=== PATIENT | female | born 1935 | race Caucasian/White ===

== ENCOUNTER 2016-06-17 01:36 | Emergency (ER) | payer MEDICARE, BC ==
[2016-06-17] MEDS ORDERED: Meclizine 25 MG Tab PO ONE (02:54)
--- NOTE | 2016-06-17 02:54 | EDM.PDOC ---
ED HPI GENERAL MEDICAL PROBLEM - General Chief Complaint: General Stated Complaint: FEELING ILL Time Seen by Provider: 06/17/16 02:19 Source of Information: Reports: Patient, Family, RN notes reviewed History Limitations: Reports: No limitations - History of Present Illness INITIAL COMMENTS - FREE TEXT/NARRATIVE: 80-year-old female presents emergency department today with complaint of dizziness, she has been dizzy for the last 4 hours did take some meclizine which provided some relief. She describes her dizziness as constant there's no hearing difficulty she did have an episode of chills prior to the onset of dizziness. Described no other symptoms. She did take one tablet of meclizine which she feels provided her some relief Neck Pain Score (Numeric/FACES): 4 - Related Data Allergies Allergy/AdvReac Type Severity Reaction Status Date / Time Sulfa (Sulfonamide Allergy Rash Verified 06/17/16 01:45 Antibiotics) Home Meds: Home Meds Aspirin [Adult Low Dose Aspirin EC] 81 mg PO DAILY 06/17/16 [History] Cholecalciferol (Vitamin D3) [Vitamin D3] 1,000 units PO DAILY 06/17/16 [History ] Cyanocobalamin (Vitamin B12) [Vitamin B12] 1,000 mcg IJ ASDIRECTED 06/17/16 [ History] Iron-Vitamin C 65 - 125 mg PO DAILY 06/17/16 [History] Latanoprost [Latanoprost] 1 drop TOP BEDTIME 06/17/16 [History] Levothyroxine [Sythroid] 100 mcg PO DAILY 06/17/16 [History] Losartan Potassium [Cozaar] 100 mg PO DAILY 06/17/16 [History] Meclizine [Antivert] 25 mg PO Q6H PRN 06/17/16 [History] Sertraline [Zoloft] 100 mg PO DAILY 06/17/16 [History] amLODIPine [Norvasc] 10 mg PO DAILY 06/17/16 [History] Past Medical History HEENT History: Reports: Glaucoma, Impaired vision Cardiovascular History: Reports: Hypertension, Other (see below) Other Cardiovascular History: carotid artery blockage Genitourinary History: Reports: UTI, recurrent 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: , 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 Musculoskeletal History: Reports: Fracture Other Musculoskeletal History: upper arm Neurological History: Reports: Vertigo Psychiatric History: Reports: Anxiety Endocrine/Metabolic History: Reports: Hypothyroidism, Other (see below) Other Endocrine/Metabolic History: hypoglycemic Hematologic History: Reports: Iron deficiency - Infectious Disease History Infectious Disease History: Reports: Chicken pox, Measles, Shingles - Past Surgical History HEENT Surgical History: Reports: Cataract surgery GI Surgical History: Reports: Bariatric procedure, Cholecystectomy, Colonoscopy Female Surgical History: Reports: Hysterectomy Social & Family History - Tobacco Use Smoking Status *Q: Never Smoker Second Hand Smoke Exposure: No - Caffeine Use Caffeine Use: Reports: Coffee, Soda - Recreational Drug Use Recreational Drug Use: No ED ROS GENERAL - Review of Systems Review Of Systems: See Below Constitutional: Reports: chills HEENT: Reports: No symptoms Respiratory: Reports: No Symptoms Cardiovascular: Reports: No symptoms GI/Abdominal: Reports: No symptoms : Reports: no symptoms Musculoskeletal: Reports: no symptoms Skin: Reports: no symptoms Neurological: Reports: Dizziness Psychiatric: Reports: Anxiety ED EXAM, GENERAL - Physical Exam Exam: See Below Free Text/Narrative:: General: Female, not in any distress, alert and oriented x3 HEENT: head is atraumatic normocephalic, eyes pupils round reactive to light right bigger than left (not new), sclera clear no conjunctivitis appreciated. Ears blocked by cerumen bilaterally. Nose no septal deviation, nares are clear, no blood present. Mouth mucosa is moist and pink no erythema or exudate noted in soft palate, tongue is midline uvula is midline, dentures in place. Neck: Supple no thyromegaly no tracheal deviation. Nodes: Cervical nodes subclavicular nodes nontender no palpable lymphadenopathy noted. Lungs: clear to auscultation bilaterally with symmetrical respirations, no adventitious noise appreciated. CV: Regular rate and rhythm S1 and S2 appreciated 2/6 systolic ejection murmur best appreciated left sternal border. Abdomen: Soft, nontender, no palpable masses or organomegaly appreciated, no distention no guarding bowel sounds are present, . Neuro: Cranial nerves II through XII grossly intact, HINTS exam produces no nystagmus or ocular abnormality Skin: Warm and dry, intact Extremities: No lower extremity edema appreciated, pedal pulse is +2. Course - Vital Signs Last Recorded V/S: Last Vital Signs Temp 96.8 F 06/17/16 03:55 Pulse 73 06/17/16 03:55 Resp 16 06/17/16 03:55 BP 128/67 06/17/16 03:55 Pulse Ox 95 06/17/16 03:55 - Orders/Labs/Meds Orders: Active Orders 24 hr Category Date Time Status EKG Documentation Completion [RC] ASDIRECTED Care 06/17/16 02:46 Active Head wo Cont [CT] Urgent Exams 06/17/16 02:45 Taken EKG 12 Lead [EK] Urgent Ther 06/17/16 02:45 Ordered Labs: Laboratory Tests 06/17/16 06/17/16 06/17/16 Range/Units 02:10 02:55 02:55 WBC 12.6 H (4.5-11.0) K/uL RBC 4.65 (3.30-5.50) M/uL Hgb 13.4 (12.0-15.0) g/dL Hct 38.9 (36.0-48.0) % MCV 84 (80-98) fL MCH 29 (27-31) pg MCHC 34 (32-36) % Plt Count 308 (150-400) K/uL Neut % (Auto) 75 H (36-66) % Lymph % (Auto) 14 L (24-44) % [place] % (Auto) 10 H (2-6) % Eos % (Auto) 1 L (2-4) % Baso % (Auto) 0 (0-1) % D-Dimer, Quantitative (0.0-400.0) ng/mL Sodium 126 L (140-148) mmol/L Potassium 3.5 L (3.6-5.2) mmol/L Chloride 92 L (100-108) mmol/L Carbon Dioxide 24 (21-32) mmol/L Anion Gap 13.5 (5.0-14.0) mmol/L BUN 20 H (7-18) mg/dL Creatinine 0.7 (0.6-1.0) mg/dL Est Cr Clr Drug Dosing 49.53 mL/min Estimated GFR (MDRD) > 60 (>60) Glucose 103 (74-106) mg/dL Calcium 8.2 L (8.5-10.1) mg/dL Total Bilirubin 0.4 (0.2-1.0) mg/dL AST 36 (15-37) U/L ALT 33 (12-78) U/L Alkaline Phosphatase 98 (46-116) U/L Troponin I < 0.017 (0.000-0.056) ng/mL Total Protein 7.7 (6.4-8.2) g/dL Albumin 3.5 (3.4-5.0) g/dL Globulin 4.2 H (2.3-3.5) g/dL Albumin/Globulin Ratio 0.8 L (1.2-2.2) Urine Color Yellow Urine Appearance Clear Urine pH 7.0 (4.5-8.0) Ur Specific [place] 1.010 (1.008-1.030) Urine Protein Negative (NEGATIVE) mg/dL Urine Glucose (UA) Normal (NEGATIVE) mg/dL Urine Ketones Negative (NEGATIVE) mg/dL Urine Occult Blood Negative (NEGATIVE) Urine Nitrite Negative (NEGATIVE) Urine Bilirubin Negative (NEGATIVE) Urine Urobilinogen Normal (NORMAL) mg/dL Ur Leukocyte Esterase Negative (NEGATIVE) Urine RBC 0-5 (0-5) Urine WBC 0-5 (0-5) Ur Epithelial Cells Rare Amorphous Sediment Not seen Urine Bacteria Rare Urine Mucus Not seen 06/17/16 Range/Units 02:55 WBC (4.5-11.0) K/uL RBC (3.30-5.50) M/uL Hgb (12.0-15.0) g/dL Hct (36.0-48.0) % MCV (80-98) fL MCH (27-31) pg MCHC (32-36) % Plt Count (150-400) K/uL Neut % (Auto) (36-66) % Lymph % (Auto) (24-44) % [place] % (Auto) (2-6) % Eos % (Auto) (2-4) % Baso % (Auto) (0-1) % D-Dimer, Quantitative 443 H (0.0-400.0) ng/mL Sodium (140-148) mmol/L Potassium (3.6-5.2) mmol/L Chloride (100-108) mmol/L Carbon Dioxide (21-32) mmol/L Anion Gap (5.0-14.0) mmol/L BUN (7-18) mg/dL Creatinine (0.6-1.0) mg/dL Est Cr Clr Drug Dosing mL/min Estimated GFR (MDRD) (>60) Glucose (74-106) mg/dL Calcium (8.5-10.1) mg/dL Total Bilirubin (0.2-1.0) mg/dL AST (15-37) U/L ALT (12-78) U/L Alkaline Phosphatase (46-116) U/L Troponin I (0.000-0.056) ng/mL Total Protein (6.4-8.2) g/dL Albumin (3.4-5.0) g/dL Globulin (2.3-3.5) g/dL Albumin/Globulin Ratio (1.2-2.2) Urine Color Urine Appearance Urine pH (4.5-8.0) Ur Specific [place] (1.008-1.030) Urine Protein (NEGATIVE) mg/dL Urine Glucose (UA) (NEGATIVE) mg/dL Urine Ketones (NEGATIVE) mg/dL Urine Occult Blood (NEGATIVE) Urine Nitrite (NEGATIVE) Urine Bilirubin (NEGATIVE) Urine Urobilinogen (NORMAL) mg/dL Ur Leukocyte Esterase (NEGATIVE) Urine RBC (0-5) Urine WBC (0-5) Ur Epithelial Cells Amorphous Sediment Urine Bacteria Urine Mucus Meds: Medications Discontinued Medications Generic Name Dose Route Start Last Admin Trade Name Freq PRN Reason Stop Dose Admin Meclizine HCl 25 mg 06/17/16 02:54 06/17/16 03:02 Antivert PO 06/17/16 02:55 25 mg ONETIME ONE Administration Departure - Departure Time of Disposition: 04:06 Disposition: Home, Self-Care 01 Condition: good Clinical Impression: Vertigo Forms: ED Department Discharge Additional Instructions: Use meclizine as needed to help dizziness symptoms, Please followup with your primary care provider in 3-5 days if not better, please call return to the emergency department with worsening of symptoms. - My Orders Last 24 Hours: My Active Orders 06/17/16 02:45 Head wo Cont [CT] Urgent EKG 12 Lead [EK] Urgent 06/17/16 02:46 EKG Documentation Completion [RC] ASDIRECTED - Assessment/Plan Last 24 Hours: My Active Orders 06/17/16 02:45 Head wo Cont [CT] Urgent EKG 12 Lead [EK] Urgent 06/17/16 02:46 EKG Documentation Completion [RC] ASDIRECTED Plan: Assessment Acuity = acute on chronic Site and laterality = vertigo complicating the patient with known history of vertigo, hypertension Etiology = unclear etiology Manifestations = none Location of injury = home Lab values = WBC mildly elevated at 12.6 consistent leukocytosis d-dimer elevated at 443 normal is 400 of unclear significance sodium low at 126 consistent hyponatremia potassium low at 2.5 consistent hypokalemia urinalysis unremarkable, EKG demonstrates a sinus rhythm CT scan shows no acute intracranial process Plan She did have improvement with meclizine provided prescription written for meclizine follow up with primary care the next 3-5 days for reevaluation of hyponatremia Patient was in agreement with the plan all questions were answered, they were instructed to return to the emergency department or call for worsening symptoms. This note was dictated using [employer] voice recognition software please call with any questions.
[2016-06-17 03:56] VITALS: BP 128/67
== END 2016-06-17 04:30 | disposition home or self-care (01) ==
LOC: JP.ED 01:36
DX: R42 Dizziness and giddiness (principal); Z88.2 Allergy status to sulfonamides; Z79.82 Long term (current) use of aspirin; Z79.899 Other long term (current) drug therapy; I10 Essential (primary) hypertension; F41.9 Anxiety disorder, unspecified; E03.9 Hypothyroidism, unspecified
CPT/HCPCS: 36415; 70450; 80053; 81001; 84484; 85025; 85379; 93005; A9270; 93010; 99283; 99284-25

== ENCOUNTER 2016-07-18 14:56 | Emergency (ER) | payer MEDICARE, BC ==
[2016-07-18 15:35] VITALS: BP 128/59
--- NOTE | 2016-07-18 17:08 | EDM.PDOC ---
ED HPI GENERAL MEDICAL PROBLEM - General Chief Complaint: Genitourinary Problem Stated Complaint: UTI Time Seen by Provider: 07/18/16 17:00 Source of Information: Reports: Patient History Limitations: Reports: No Limitations - History of Present Illness INITIAL COMMENTS - FREE TEXT/NARRATIVE: Debra is a delightful 80 year old female who presents to the ED today with c/ o dysuria, urgency/frequency and fatigue since yesterday. Patient denies any back pain, fever/chills, nausea/vomiting. Patient was seen last week and diagnosed with a UTI. Patient was started on Macrobid last Thursday, July 11, 2016. She reports she felt better earlier this week then symptoms started again yesterday. Patient denies any gross hematuria. Onset Date: 07/17/16 Quality: Reports: Burning Improves with: Reports: None Associated Symptoms: Reports: Other (fatigue) - Related Data Allergies Allergy/AdvReac Type Severity Reaction Status Date / Time Sulfa (Sulfonamide Allergy Rash Verified 07/18/16 15:45 Antibiotics) Home Meds: Home Meds Aspirin [Adult Low Dose Aspirin EC] 81 mg PO DAILY 06/17/16 [History] Cholecalciferol (Vitamin D3) [Vitamin D3] 1,000 units PO DAILY 06/17/16 [History ] Cyanocobalamin (Vitamin B12) [Vitamin B12] 1,000 mcg IJ ASDIRECTED 06/17/16 [ History] Iron-Vitamin C 65 - 125 mg PO DAILY 06/17/16 [History] Latanoprost [Latanoprost] 1 drop TOP BEDTIME 06/17/16 [History] Levothyroxine [Sythroid] 100 mcg PO DAILY 06/17/16 [History] Losartan Potassium [Cozaar] 100 mg PO DAILY 06/17/16 [History] Meclizine [Antivert] 25 mg PO Q6H PRN 06/17/16 [History] Sertraline [Zoloft] 100 mg PO DAILY 06/17/16 [History] amLODIPine [Norvasc] 10 mg PO DAILY 06/17/16 [History] Doxycycline Hyclate 50 mg PO DAILY 07/18/16 [History] Past Medical History HEENT History: Reports: Glaucoma, Impaired Vision Cardiovascular History: Reports: Hypertension, Other (See Below) Other Cardiovascular History: carotid artery blockage Gastrointestinal History: Reports: Cholelithiasis Genitourinary History: Reports: UTI, Recurrent 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: , 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 Musculoskeletal History: Reports: Fracture Other Musculoskeletal History: upper arm Neurological History: Reports: Vertigo Psychiatric History: Reports: Anxiety Endocrine/Metabolic History: Reports: Hypothyroidism, Other (See Below) Other Endocrine/Metabolic History: hypoglycemic Hematologic History: Reports: Iron Deficiency - Infectious Disease History Infectious Disease History: Reports: Chicken Pox, Measles, Shingles - Past Surgical History HEENT Surgical History: Reports: Cataract Surgery GI Surgical History: Reports: Bariatric Procedure, Cholecystectomy, Colonoscopy Female Surgical History: Reports: Hysterectomy Social & Family History - Tobacco Use Smoking Status *Q: Never Smoker Second Hand Smoke Exposure: No - Caffeine Use Caffeine Use: Reports: Coffee, Soda - Recreational Drug Use Recreational Drug Use: No ED ROS GENERAL - Review of Systems Review Of Systems: ROS reveals no pertinent complaints other than HPI. ED EXAM, RENAL/ - Physical Exam Exam: See Below Exam Limited By: No Limitations General Appearance: Alert, WD/WN, No Apparent Distress Respiratory/Chest: No Respiratory Distress, Lungs Clear Cardiovascular: Normal Peripheral Pulses, Regular Rate, Rhythm GI/Abdominal: Normal Bowel Sounds, Soft, Non-Tender (Female) Exam: Other (No CVA tenderness on exam. ) Neurological: Alert, Oriented (Well hydrated, non-toxic appearing female sitting in chair in no acute distress) Psychiatric: Normal Affect Skin Exam: Warm, Dry Course - Vital Signs Text/Narrative:: Debra is an 80 year old female who presents to the ED today with concerns for return of UTI. Please refer to HPI and focused exam. Patient arrives her afebrile and in no acute distress. Her exam is reassuring today. UA is consistent with UTI. UC is pending. UC from urine on 07/11/16 shows sensitivity to essentially everything except for tetracycline. Patient was treated with Macrobid last week. Patient may benefit from an antibiotic that is bacetericidal. Patient has sulfa allergy. I am going to start her on Cipro, BID for 5 days. Patient's last GFR was > 60 with an estimated CC of 49.53 on 01/2017, I will start patient on 500 mg BID. I did encourage patient to start a probiotic while she is on the antibiotics. I would like her seen in clinic later this next week. Reasons to return to the ED were discussed. Patient is agreeable to plan of care and questions were answered prior to discharge. Patient discharged in stable condition. Last Recorded V/S: Last Vital Signs Temp 37.0 C 07/18/16 15:43 Pulse 78 07/18/16 15:43 Resp 18 07/18/16 15:43 BP 128/59 L 07/18/16 15:43 Pulse Ox 95 07/18/16 15:43 - Orders/Labs/Meds Orders: Active Orders 24 hr Category Date Time Status CULTURE URINE [RM] Stat Lab 07/18/16 16:30 Received Labs: Laboratory Tests 07/18/16 Range/Units 16:05 Urine Color Yellow Urine Appearance Cloudy Urine pH 6.0 (4.5-8.0) Ur Specific [place] 1.010 (1.008-1.030) Urine Protein Negative (NEGATIVE) mg/dL Urine Glucose (UA) Normal (NEGATIVE) mg/dL Urine Ketones Negative (NEGATIVE) mg/dL Urine Occult Blood Large (NEGATIVE) Urine Nitrite Positive H (NEGATIVE) Urine Bilirubin Negative (NEGATIVE) Urine Urobilinogen Normal (NORMAL) mg/dL Ur Leukocyte Esterase Large (NEGATIVE) Urine RBC 50-75 H (0-5) Urine WBC Semi-packed H (0-5) Ur Epithelial Cells Few Amorphous Sediment Not seen Urine Bacteria Many Urine Mucus Not seen Departure - Departure Time of Disposition: 17:30 Disposition: Home, Self-Care 01 Clinical Impression: UTI, Urinary tract infectious disease - Discharge Information Instructions: Urinary Tract Infection, Adult, [id number] Referrals: Nemesio Taveras MD [Primary Care Provider] - Forms: ED Department Discharge Additional Instructions: Debra, please take Cipro as prescribed. I would also like you to start a probiotic while on the antibiotics which will help with Stomach upset and prevent diarrhea. The brand I like to Recommend is Culturelle, you can find this at [email or web address]. Please take twice daily for 7 days. It was delightful to meet you. Take care and I hope you feel better soon. - My Orders Last 24 Hours: My Active Orders 07/18/16 16:30 CULTURE URINE [RM] Stat - Assessment/Plan Last 24 Hours: My Active Orders 07/18/16 16:30 CULTURE URINE [RM] Stat
== END 2016-07-18 17:25 | disposition home or self-care (01) ==
LOC: JP.ED 14:56
DX: N39.0 Urinary tract infection, site not specified (principal); I10 Essential (primary) hypertension; F41.9 Anxiety disorder, unspecified; E03.9 Hypothyroidism, unspecified; Z98.49 Cataract extraction status, unspecified eye; Z98.84 Bariatric surgery status; Z90.49 Acquired absence of other specified parts of digestive tract; Z90.710 Acquired absence of both cervix and uterus; Z79.82 Long term (current) use of aspirin; Z79.899 Other long term (current) drug therapy; Z88.2 Allergy status to sulfonamides
CPT/HCPCS: 81001; 87086; 87088; 87186; 99283; 99284

== ENCOUNTER 2016-10-13 06:00 | Emergency (ER) | payer MEDICARE, BC ==
[2016-10-13 06:07] VITALS: BP 131/69
--- NOTE | 2016-10-13 06:33 | EDM.PDOC ---
ED HPI GENERAL MEDICAL PROBLEM - General Chief Complaint: Cardiovascular Problem Stated Complaint: MED[facility] Time Seen by Provider: 10/13/16 06:24 Source of Information: Reports: Patient, EMS, RN Notes Reviewed History Limitations: Reports: No Limitations - History of Present Illness INITIAL COMMENTS - FREE TEXT/NARRATIVE: 81-year-old female presents emergency department today with complaint of elevated blood pressure, she has a known history of hypertension usually controls with combination losartan and amlodipine she awoke this morning checked her blood pressure systolic in the 200 range diastolic 110 range she felt flushed uncomfortable she did take her morning medications called EMS services, by the time EMS had arrived in the ambulance blood pressure was 124/ 86 feels all of her symptoms have resolved she is asymptomatic at this time - Related Data Allergies Allergy/AdvReac Type Severity Reaction Status Date / Time Sulfa (Sulfonamide Allergy Rash Verified 10/13/16 06:13 Antibiotics) contrast dye Allergy Rash Uncoded 10/13/16 06:13 Home Meds: Home Meds Cholecalciferol (Vitamin D3) [Vitamin D3] 1,000 units PO DAILY 06/17/16 [History ] Cyanocobalamin (Vitamin B12) [Vitamin B12] 1,000 mcg IJ ASDIRECTED 06/17/16 [ History] Iron-Vitamin C 65 - 125 mg PO DAILY 06/17/16 [History] Latanoprost [Latanoprost] 1 drop EYELF BEDTIME 06/17/16 [History] Levothyroxine [Sythroid] 100 mcg PO DAILY 06/17/16 [History] Losartan Potassium [Cozaar] 100 mg PO DAILY 06/17/16 [History] Meclizine [Antivert] 25 mg PO Q6H PRN 06/17/16 [History] Sertraline [Zoloft] 100 mg PO DAILY 06/17/16 [History] amLODIPine [Norvasc] 10 mg PO DAILY 06/17/16 [History] Aspirin [Halfprin] 81 mg PO DAILY 10/13/16 [History] Past Medical History HEENT History: Reports: Cataract, Glaucoma, Impaired Vision Cardiovascular History: Reports: Blood Clots/VTE/DVT, Hypertension, Other (See Below) Other Cardiovascular History: carotid artery blockage Gastrointestinal History: Reports: Cholelithiasis Genitourinary History: Reports: Urinary Incontinence, UTI, 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: , 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 Musculoskeletal History: Reports: Fracture Other Musculoskeletal History: upper arm Neurological History: Reports: Vertigo Psychiatric History: Reports: Anxiety, Depression Endocrine/Metabolic History: Reports: Hypothyroidism, Obesity/BMI 30+, Other ( See Below) Other Endocrine/Metabolic History: hypoglycemic Hematologic History: Reports: Anemia, Iron Deficiency Dermatologic History: Reports: Cellulitis - Infectious Disease History Infectious Disease History: Reports: Chicken Pox, Measles, Shingles - Past Surgical History HEENT Surgical History: Reports: Cataract Surgery GI Surgical History: Reports: Bariatric Procedure, Cholecystectomy, Colonoscopy Female Surgical History: Reports: Hysterectomy Social & Family History - Tobacco Use Smoking Status *Q: Never Smoker Second Hand Smoke Exposure: No - Caffeine Use Caffeine Use: Reports: Coffee, Soda - Recreational Drug Use Recreational Drug Use: No ED ROS GENERAL - Review of Systems Review Of Systems: See Below Constitutional: Reports: No Symptoms Respiratory: Reports: No Symptoms Cardiovascular: Reports: No Symptoms GI/Abdominal: Reports: No Symptoms : Reports: No Symptoms ED EXAM, GENERAL - Physical Exam Exam: See Below Exam Limited By: No Limitations General Appearance: Alert, WD/WN, No Apparent Distress Respiratory/Chest: No Respiratory Distress, Lungs Clear, Normal Breath Sounds, No Accessory Muscle Use Cardiovascular: Regular Rate, Rhythm, No Murmur GI/Abdominal: Soft, Non-Tender Course - Vital Signs Last Recorded V/S: Last Vital Signs Temp 96.3 F 10/13/16 06:02 Pulse 72 10/13/16 06:02 Resp 16 10/13/16 06:02 BP 131/69 10/13/16 06:02 Pulse Ox 93 L 10/13/16 06:02 - Orders/Labs/Meds Orders: Active Orders 24 hr Category Date Time Status EKG Documentation Completion [RC] ASDIRECTED Care 10/13/16 06:31 Active EKG 12 Lead [EK] Stat Ther 10/13/16 06:31 Ordered Labs: Laboratory Tests 10/13/16 10/13/16 Range/Units 06:35 06:35 WBC 11.2 H (4.5-11.0) K/uL RBC 4.71 (3.30-5.50) M/uL Hgb 13.8 (12.0-15.0) g/dL Hct 40.7 (36.0-48.0) % MCV 86 (80-98) fL MCH 29 (27-31) pg MCHC 34 (32-36) % Plt Count 358 (150-400) K/uL Neut % (Auto) 61 (36-66) % Lymph % (Auto) 23 L (24-44) % [place] % (Auto) 13 H (2-6) % Eos % (Auto) 3 (2-4) % Baso % (Auto) 1 (0-1) % Sodium 136 L (140-148) mmol/L Potassium 3.8 (3.6-5.2) mmol/L Chloride 99 L (100-108) mmol/L Carbon Dioxide 28 (21-32) mmol/L Anion Gap 12.8 (5.0-14.0) mmol/L BUN 15 (7-18) mg/dL Creatinine 0.8 (0.6-1.0) mg/dL Est Cr Clr Drug Dosing 43.62 mL/min Estimated GFR (MDRD) > 60 (>60) Glucose 99 (74-106) mg/dL Calcium 8.7 (8.5-10.1) mg/dL Departure - Departure Time of Disposition: 07:05 Disposition: Home, Self-Care 01 Condition: Good Clinical Impression: Hypertensive urgency Forms: ED Department Discharge Additional Instructions: Please followup with your primary care provider in 3-5 days if not better, please call return to the emergency department with worsening of symptoms. - My Orders Last 24 Hours: My Active Orders 10/13/16 06:31 EKG Documentation Completion [RC] ASDIRECTED EKG 12 Lead [EK] Stat - Assessment/Plan Last 24 Hours: My Active Orders 10/13/16 06:31 EKG Documentation Completion [RC] ASDIRECTED EKG 12 Lead [EK] Stat Plan: Assessment Acuity = acute Site and laterality = hypertensive urgency complicated patient with known history of hypertension Etiology = unclear etiology Manifestations = none Location of injury = Home Lab values = CBC, BMP unremarkable EKG shows sinus rhythm no ST changes Plan I did review lab work and EKG results with her she is given try and follow- up with her primary care provider for reevaluation of her blood pressure this week Patient was in agreement with the plan all questions were answered, they were instructed to return to the emergency department or call for worsening symptoms. This note was dictated using [employer] voice recognition software please call with any questions.
== END 2016-10-13 07:19 | disposition home or self-care (01) ==
LOC: JP.ED 06:00
DX: I16.0 Hypertensive urgency (principal); E03.9 Hypothyroidism, unspecified; D50.9 Iron deficiency anemia, unspecified; F41.9 Anxiety disorder, unspecified; E66.9 Obesity, unspecified; F32.9 Major depressive disorder, single episode, unspecified; Z87.440 Personal history of urinary (tract) infections; Z98.49 Cataract extraction status, unspecified eye; Z98.84 Bariatric surgery status; Z90.49 Acquired absence of other specified parts of digestive tract; Z90.710 Acquired absence of both cervix and uterus; Z86.718 Personal history of other venous thrombosis and embolism; Z79.82 Long term (current) use of aspirin; Z79.899 Other long term (current) drug therapy; Z88.2 Allergy status to sulfonamides; Z91.041 Radiographic dye allergy status
CPT/HCPCS: 36415; 80048; 85025; 93005; 93010; 99284; 99284-25

== ENCOUNTER 2018-11-22 16:43 | Inpatient (IN) | payer BC, MEDICARE ==
--- NOTE | 2018-11-22 17:11 | EDM.PDOC ---
ED HPI GENERAL MEDICAL PROBLEM - General Chief Complaint: Cardiovascular Problem Stated Complaint: PAIN ON UPPER L SIDE Time Seen by Provider: 11/22/18 17:10 Source of Information: Reports: Patient, RN Notes Reviewed - History of Present Illness INITIAL COMMENTS - FREE TEXT/NARRATIVE: Debra is an 83 year old female who presents to the ED today from clinic with c/o left sided chest pain that started this morning after waking up this morning. Patient did not wake up with this pain. Pain progressed throughout the day and now moved to left lower chest/quadrant and has been spasming in nature. Patient endorses mild nausea, denies any vomiting. Stooling and urinating normally. Patient denies any fever, took 325 mg of Aspirin without any relief. Patient has never had pain like this before. Patient no longer has her gallbladder. Patient denies any known hx of aneurysm. Patient denies any fever. Patient drove herself here. Onset: Today, Sudden Left Middle Chest Pain Score (Numeric/FACES): 8 Left Shoulder Pain Score (Numeric/FACES): 4 - Related Data Allergies Allergy/AdvReac Type Severity Reaction Status Date / Time Sulfa (Sulfonamide Allergy Rash Verified 11/22/18 17:06 Antibiotics) contrast dye Allergy Rash Uncoded 11/22/18 17:06 Dust mite extract Allergy Sneezing Uncoded 11/22/18 17:06 Home Meds: Home Meds Cholecalciferol (Vitamin D3) [Vitamin D3] 1,000 units PO DAILY 06/17/16 [History ] Cyanocobalamin (Vitamin B12) [Vitamin B12] 1,000 mcg IJ ASDIRECTED 06/17/16 [ History] Iron-Vitamin C 65 - 125 mg PO DAILY 06/17/16 [History] Latanoprost 1 drop EYELF BEDTIME 06/17/16 [History] Levothyroxine [Sythroid] 100 mcg PO DAILY 06/17/16 [History] Losartan Potassium [Cozaar] 100 mg PO DAILY 06/17/16 [History] Meclizine [Antivert] 25 mg PO Q6H PRN 06/17/16 [History] Sertraline [Zoloft] 100 mg PO DAILY 06/17/16 [History] amLODIPine [Norvasc] 10 mg PO DAILY 06/17/16 [History] Past Medical History HEENT History: Reports: Cataract, Glaucoma, Impaired Vision Cardiovascular History: Reports: Blood Clots/VTE/DVT, Hypertension, Other (See Below) Other Cardiovascular History: carotid artery blockage Gastrointestinal History: Reports: Cholelithiasis Genitourinary History: Reports: Urinary Incontinence, UTI, Recurrent 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: , 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 Musculoskeletal History: Reports: Fracture Other Musculoskeletal History: upper arm Neurological History: Reports: Vertigo Psychiatric History: Reports: Anxiety, Depression Endocrine/Metabolic History: Reports: Hypothyroidism, Obesity/BMI 30+, Other ( See Below) Other Endocrine/Metabolic History: hypoglycemic Hematologic History: Reports: Anemia, Iron Deficiency Dermatologic History: Reports: Cellulitis - Infectious Disease History Infectious Disease History: Reports: Chicken Pox, Measles, Shingles - Past Surgical History HEENT Surgical History: Reports: Cataract Surgery GI Surgical History: Reports: Bariatric Procedure, Cholecystectomy, Colonoscopy Female Surgical History: Reports: Hysterectomy Social & Family History - Caffeine Use Caffeine Use: Reports: Coffee, Soda ED ROS GENERAL - Review of Systems Review Of Systems: ROS reveals no pertinent complaints other than HPI. ED EXAM, GENERAL - Physical Exam Exam: See Below Exam Limited By: No Limitations General Appearance: Alert, Mild Distress, Other (appears very uncomfortable, guarding her LUQ/side) Eye Exam: Bilateral Eye: EOMI Ears: Normal External Exam Head: Atraumatic Neck: Normal Inspection Respiratory/Chest: No Respiratory Distress Cardiovascular: Regular Rate, Rhythm, Systolic Murmur GI/Abdominal: Normal Bowel Sounds, Soft, Tender (LUQ), Hernia (right sided umbilical ) Back Exam: Normal Inspection Extremities: Normal Inspection Neurological: Alert, Oriented Psychiatric: Normal Affect Skin Exam: Warm, Dry, Intact EKG INTERPRETATION EKG Date: 11/22/18 Time: 17:11 Rhythm: NSR [place]: LAD-Left [place] Deviation P-Wave: Present QRS: Normal ST-T: Normal QT: Normal Course - Vital Signs Last Recorded V/S: Last Vital Signs Temp 37.1 C 11/22/18 17:05 Pulse 90 11/22/18 19:26 Resp 16 11/22/18 18:51 BP 120/64 11/22/18 19:26 Pulse Ox 93 L 11/22/18 19:26 Debra is an 83-year-old female who presents to the emergency department today as directed by the clinic with left-sided chest pain. Please refer to history of present illness and focused exam. Patient arrives here hemodynamically stable, she is afebrile although she is borderline hypoxic with oxygen saturation in the low 90s. Patient denies any shortness of breath, patient's pain on exam almost seems spasmodic in nature. Pain does shoot to the back and up to left shoulder. Patient has had a cholecystectomy. Certainly could be a common bile duct stone but I feel would be more on the right side, concern for entrapment with her ventral hernia although exam here is soft and reassuring and easily reducible. Patient has no rash to indicate shingles presentation. The patient has had a productive cough for the last 4 days with green sputum production. Certainly pneumonia is on the differential. Concern initially with the amount of pain patient was in for possible dissecting aorta. Patient does have an allergy to contrast the CT scan of chest abdomen and pelvis was obtained without contrast. Thoracic aorta appears within normal limits. Patient does have a masslike density in the lingula measuring 4.9 x 3.7 x 3 cm. Patient has 2 mm subpleural pulmonary nodule in the left upper lobe and 15.5 mm in the right upper lobe no effusions were noted. M bile ducts consistent with status post cholecystectomy with mild intrahepatic biliary ductal dilatation findings likely due to reservoir effect. Patient does have to nonobstructive left renal stones measuring up to 9 mm in diameter with mild left hydronephrosis and dilatation of the renal pelvis there is no stones within the ureter. Patient is status post gastric bypass, normal appendix, large ventral hernia containing mesenteric fat loops of normal appearing colon and small bowel. Patient's blood work today returns concerning for elevated white count of 14.9, 76% neutrophils. Sodium mildly low at 133 with a chloride of 96. Patient does have a small gap of 15.9. CRP is elevated at 1.51. Urinalysis is within normal limits. EKG and troponin were unremarkable. Patient' s oxygen saturation did dip down to 88% on room air here, this responded nicely to 2 L per nasal cannula and did go up to 95%. CT scan findings were reviewed, question if the masslike structure noted on CT is more of an infiltrate, this certainly would coincide with patient's pain/symptoms and history of productive cough with elevated white count and CRP and mild hypoxia. At this time I am in a tree patient from an infectious standpoint, she was started on IV Rocephin and Zithromax. I did discuss patient's case with Dr. Li, hospitalist, he has accepted patient for admission. Patient updated on plan of care and is agreeable. Patient admitted in stable condition. - Orders/Labs/Meds Orders: Active Orders 24 hr Category Date Time Status EKG Documentation Completion [RC] ASDIRECTED Care 11/22/18 16:57 Active Peripheral IV Care [RC] . DIRECTED Care 11/22/18 17:22 Active Azithromycin [Zithromax] 500 mg Med 11/22/18 19:28 Active Sodium Chloride 0.9% [Normal Saline] 250 ml IV ONETIME Sodium Chloride 0.9% [Normal Saline] 1,000 ml Med 11/22/18 17:30 Active IV ASDIRECTED Sodium Chloride 0.9% [Saline Flush] Med 11/22/18 17:22 Active 10 ml FLUSH ASDIRECTED PRN cefTRIAXone [Rocephin] 1 gm Med 11/22/18 19:27 Active Sodium Chloride 0.9% [Normal Saline] 50 ml IV ONETIME Peripheral IV Insertion Adult [OM.PC] Routine Oth 11/22/18 17:22 Ordered EKG 12 Lead [EK] Stat Ther 11/22/18 16:57 Ordered Medication Orders Sodium Chloride (Normal Saline) 1,000 mls @ 999 mls/hr IV ASDIRECTED LIBAN Last Admin: 11/22/18 17:32 Dose: 999 mls/hr Azithromycin 500 mg/ Sodium (Chloride) 250 mls @ 250 mls/hr IV ONETIME ONE Stop: 11/22/18 20:27 Ceftriaxone Sodium 1 gm/ (Sodium Chloride) 50 mls @ 100 mls/hr IV ONETIME ONE Stop: 11/22/18 19:56 Sodium Chloride (Saline Flush) 10 ml FLUSH ASDIRECTED PRN PRN Reason: Keep Vein Open Last Admin: 11/22/18 17:33 Dose: 10 ml Labs: Laboratory Tests 11/22/18 11/22/18 11/22/18 Range/Units 17:37 17:37 18:22 WBC 14.9 H (4.5-11.0) K/uL RBC 4.63 (3.30-5.50) M/uL Hgb 13.4 (12.0-15.0) g/dL Hct 40.5 (36.0-48.0) % MCV 88 (80-98) fL MCH 29 (27-31) pg MCHC 33 (32-36) % Plt Count 380 (150-400) K/uL Neut % (Auto) 76 H (36-66) % Lymph % (Auto) 12 L (24-44) % [place] % (Auto) 11 H (2-6) % Eos % (Auto) 1 L (2-4) % Baso % (Auto) 0 (0-1) % Sodium 133 L (140-148) mmol/L Potassium 3.9 (3.6-5.2) mmol/L Chloride 96 L (100-108) mmol/L Carbon Dioxide 25 (21-32) mmol/L Anion Gap 15.9 H (5.0-14.0) mmol/L BUN 15 (7-18) mg/dL Creatinine 0.8 (0.6-1.0) mg/dL Est Cr Clr Drug Dosing 40.21 mL/min Estimated GFR (MDRD) > 60 (>60) Glucose 128 H (74-106) mg/dL Calcium 9.0 (8.5-10.1) mg/dL Total Bilirubin 0.3 (0.2-1.0) mg/dL AST 21 (15-37) U/L ALT 17 (12-78) U/L Alkaline Phosphatase 126 H (46-116) U/L Troponin I < 0.017 (0.000-0.056) ng/mL C-Reactive Protein 1.51 H (0.0-0.3) mg/dL Total Protein 7.9 (6.4-8.2) g/dL Albumin 3.1 L (3.4-5.0) g/dL Globulin 4.8 H (2.3-3.5) g/dL Albumin/Globulin Ratio 0.7 L (1.2-2.2) Lipase 68 L (73-393) U/L Urine Color Yellow (YELLOW) Urine Appearance Clear (CLEAR) Urine pH 7.0 (5.0-8.0) Ur Specific [place] 1.015 (1.008-1.030) Urine Protein Negative (NEGATIVE) mg/dL Urine Glucose (UA) Negative (NEGATIVE) mg/dL Urine Ketones Negative (NEGATIVE) mg/dL Urine Occult Blood Negative (NEGATIVE) Urine Nitrite Negative (NEGATIVE) Urine Bilirubin Negative (NEGATIVE) Urine Urobilinogen 0.2 (0.2-1.0) EU/dL Ur Leukocyte Esterase Negative (NEGATIVE) Urine RBC 0-5 (0-5) Urine WBC 0-5 (0-5) Ur Epithelial Cells Rare Amorphous Sediment Rare Urine Bacteria Not seen Urine Mucus Not seen Meds: Medications Generic Name Dose Route Start Last Admin Trade Name Freq PRN Reason Stop Dose Admin Sodium Chloride 1,000 mls @ 999 mls/hr 11/22/18 17:30 11/22/18 17:32 Normal Saline IV 999 mls/hr ASDIRECTED LIBAN Administration Azithromycin 500 mg/ Sodium 250 mls @ 250 mls/hr 11/22/18 19:28 Chloride IV 11/22/18 20:27 ONETIME ONE Ceftriaxone Sodium 1 gm/ 50 mls @ 100 mls/hr 11/22/18 19:27 Sodium Chloride IV 11/22/18 19:56 ONETIME ONE Sodium Chloride 10 ml 11/22/18 17:22 11/22/18 17:33 Saline Flush FLUSH 10 ml ASDIRECTED PRN Administration Keep Vein Open Discontinued Medications Generic Name Dose Route Start Last Admin Trade Name Freq PRN Reason Stop Dose Admin Hydromorphone HCl 0.5 mg 11/22/18 17:23 11/22/18 17:30 Dilaudid IVPUSH 11/22/18 17:24 0.5 mg ONETIME ONE Administration Hydromorphone HCl 0.5 mg 11/22/18 19:28 Dilaudid IVPUSH 11/22/18 19:29 ONETIME ONE Ondansetron HCl 4 mg 11/22/18 17:22 11/22/18 17:31 Zofran IVPUSH 11/22/18 17:23 4 mg ONETIME ONE Administration Departure - Departure Time of Disposition: 20:30 Disposition: Admitted As Inpatient 66 Condition: Fair Clinical Impression: Hypoxia, Acute costochondritis Pneumonia Qualifiers: Pneumonia type: due to unspecified organism Laterality: left Lung location: lower lobe of lung Qualified Code(s): J18.1 - Lobar pneumonia, unspecified organism Ventral hernia Qualifiers: Obstruction and gangrene presence: without obstruction or gangrene Qualified Code(s): K43.9 - Ventral hernia without obstruction or gangrene Referrals: Nemesio Taveras MD [Primary Care Provider] - Forms: ED Department Discharge - My Orders Last 24 Hours: My Active Orders 11/22/18 16:57 EKG Documentation Completion [RC] ASDIRECTED EKG 12 Lead [EK] Stat 11/22/18 17:22 Peripheral IV Care [RC] . DIRECTED Sodium Chloride 0.9% [Saline Flush] 10 ml FLUSH ASDIRECTED PRN Peripheral IV Insertion Adult [OM.PC] Routine 11/22/18 17:30 Sodium Chloride 0.9% [Normal Saline] 1,000 ml IV ASDIRECTED 11/22/18 19:27 cefTRIAXone [Rocephin] 1 gm Sodium Chloride 0.9% [Normal Saline] 50 ml IV ONETIME 11/22/18 19:28 Azithromycin [Zithromax] 500 mg Sodium Chloride 0.9% [Normal Saline] 250 ml IV ONETIME - Assessment/Plan Last 24 Hours: My Active Orders 11/22/18 16:57 EKG Documentation Completion [RC] ASDIRECTED EKG 12 Lead [EK] Stat 11/22/18 17:22 Peripheral IV Care [RC] . DIRECTED Sodium Chloride 0.9% [Saline Flush] 10 ml FLUSH ASDIRECTED PRN Peripheral IV Insertion Adult [OM.PC] Routine 11/22/18 17:30 Sodium Chloride 0.9% [Normal Saline] 1,000 ml IV ASDIRECTED 11/22/18 19:27 cefTRIAXone [Rocephin] 1 gm Sodium Chloride 0.9% [Normal Saline] 50 ml IV ONETIME 11/22/18 19:28 Azithromycin [Zithromax] 500 mg Sodium Chloride 0.9% [Normal Saline] 250 ml IV ONETIME
[2018-11-22] MEDS ORDERED: Ondansetron 4 MG/2 ML SDV IVPUSH ONE (17:22)
[2018-11-22] MEDS ORDERED: Sodium Chloride 0.9% 10 ML Syringe FLUSH PRN ×2 (17:22→21:14)
[2018-11-22] MEDS ORDERED: HYDROmorphone 0.5 MG/0.5 ML Syringe IVPUSH ONE ×2 (17:23→19:28)
[2018-11-22] MEDS ORDERED: Sodium Chloride 0.9% 1,000 ML IV SCH ×2 (17:30→21:14)
--- NOTE | 2018-11-22 19:05 | CRLCT ---
INDICATION: Left chest and abdominal pain TECHNIQUE: CT chest, abdomen and pelvis acquired without IV contrast due to patient allergy. COMPARISON: None FINDINGS: Chest: Cardiovascular structures: Heart size is normal. Coronary artery calcifications. The thoracic aorta and main pulmonary artery are normal in caliber. Mediastinum and tae: No mass or adenopathy. Lungs: 4.9 x 3.7 x 3.0 cm masslike density in the lingula. 2 mm subpleural pulmonary nodule left upper lobe image 44 series 5. 5 mm right upper lobe pulmonary nodule image 60 series 5. Pleura and pericardium: No effusions. Chest wall and axilla: No mass or adenopathy. Elevation of the right hemidiaphragm. Bones: Unremarkable for age. Abdomen and Pelvis: Liver: Unremarkable. Spleen: Unremarkable. Pancreas: Unremarkable. Gallbladder and bile ducts: S/p cholecystectomy. Mild intrahepatic biliary ductal dilatation. The common bile duct measures 1.8 cm in diameter, gradually tapering to a diameter of 4 mm at the level of the pancreatic head these findings may be due to reservoir effect. Adrenal glands: Unremarkable. Kidneys: Two nonobstructive left renal stones measuring up to 9 mm in diameter mild left hydronephrosis and dilatation of the renal pelvis. The left ureter is not dilated. No stone within the ureter. GI tract: Status post gastric bypass procedure. Appendix is normal. Vascular structures: Moderate atherosclerotic disease. Lymph nodes: Unremarkable. Miscellaneous: Large ventral hernia containing mesenteric fat and loops of normal appearing colon and small bowel. No free air or significant free fluid. Pelvic Organs: Status post hysterectomy. Bones: Unremarkable for age. IMPRESSION: Masslike density in the lingula. This may represent pulmonary neoplasm or focal consolidation. Pulmonary nodules in both upper lobes. Coronary artery disease. Left pelvic caliectasis with decompressed left ureter. 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 Large ventral hernia containing fat and loops of normal appearing bowel. Status post hysterectomy, cholecystectomy, and gastric bypass procedure. Please note that all CT scans at this facility use dose modulation, iterative reconstruction, and/or weight-based dosing when appropriate to reduce radiation dose to as low as reasonably achievable. Dictated by Luz Maria Jackson MD @ Nov 22 2018 7:04PM Signed by Dr. Luz Maria Jackson @ Nov 22 2018 7:04PM
[2018-11-22] MEDS ORDERED: cefTRIAXone 1 GM in Sodium Chloride 0.9% 50 ML IV ONE (19:27)
[2018-11-22] MEDS ORDERED: Azithromycin 500 MG in Sodium Chloride 0.9% 250 ML IV ONE (19:28)
--- NOTE | 2018-11-22 20:19 | PCM.HP.2 ---
H&P History of Present Illness - General Date of Service: 11/22/18 Admit Problem/Dx: Admission Diagnosis/Problem Admission Diagnosis/Problem Pneumonia Source of Information: Patient, Provider, RN Notes Reviewed History Limitations: Reports: No Limitations - History of Present Illness Initial Comments - Free Text/Narative: Ms. Martínez is an 83-year-old woman who was admitted through the emergency department with cough, shortness of breath, and chest wall pain, secondary to left lung pneumonia. She was feeling fairly well until yesterday afternoon when she began to develop pleuritic pain in her lower left chest wall, present anteriorly laterally and posteriorly. Became worse today and she presented to the emergency department for further evaluation. She has experienced some sweating but is not aware of specific fever or chills. Cough has been productive of some green sputum, but remains fairly infrequent. On evaluation the emergency department her white blood cell count is elevated and she was found to be hypoxic with oxygen saturation of 88% on room air. Oxygenation has improved with supplemental oxygen. CT scan of the chest abdomen and pelvis was obtained showing evidence of an infiltrate in the left lung. Left Middle Chest Pain Score (Numeric/FACES): 8 Left Shoulder Pain Score (Numeric/FACES): 4 - Related Data Allergies/Adverse Reactions: Allergies Allergy/AdvReac Type Severity Reaction Status Date / Time Sulfa (Sulfonamide Allergy Rash Verified 11/22/18 17:06 Antibiotics) contrast dye Allergy Rash Uncoded 11/22/18 17:06 Dust mite extract Allergy Sneezing Uncoded 11/22/18 17:06 Home Medications: Home Meds Cholecalciferol (Vitamin D3) [Vitamin D3] 1,000 units PO DAILY 06/17/16 [History ] Cyanocobalamin (Vitamin B12) [Vitamin B12] 1,000 mcg IJ ASDIRECTED 06/17/16 [ History] Iron-Vitamin C 65 - 125 mg PO DAILY 06/17/16 [History] Latanoprost 1 drop EYELF DAILY 06/17/16 [History] Levothyroxine [Sythroid] 100 mcg PO DAILY 06/17/16 [History] Losartan Potassium [Cozaar] 100 mg PO DAILY 06/17/16 [History] Meclizine [Antivert] 25 mg PO Q6H PRN 06/17/16 [History] Sertraline [Zoloft] 100 mg PO DAILY 06/17/16 [History] amLODIPine [Norvasc] 10 mg PO BID 06/17/16 [History] Tolterodine Tartrate [Tolterodine Tartrate ER] 1 tab PO BEDTIME 11/22/18 [ History] Past Medical History HEENT History: Reports: Cataract, Glaucoma, Impaired Vision Cardiovascular History: Reports: Blood Clots/VTE/DVT, Hypertension, Other (See Below) Other Cardiovascular History: carotid artery blockage Gastrointestinal History: Reports: Cholelithiasis Other Gastrointestinal History: right sided abdominal hernia Genitourinary History: Reports: Urinary Incontinence, UTI, Recurrent [employer] History: Reports: , Spontaneous Musculoskeletal History: Reports: Fracture Other Musculoskeletal History: upper arm Neurological History: Reports: Vertigo Psychiatric History: Reports: Anxiety, Depression Endocrine/Metabolic History: Reports: Hypothyroidism, Obesity/BMI 30+, Other ( See Below) Other Endocrine/Metabolic History: hypoglycemic Hematologic History: Reports: Anemia, Iron Deficiency Dermatologic History: Reports: Cellulitis - Infectious Disease History Infectious Disease History: Reports: Chicken Pox, Measles, Shingles - Past Surgical History HEENT Surgical History: Reports: Cataract Surgery GI Surgical History: Reports: Bariatric Procedure, Cholecystectomy, Colonoscopy Female Surgical History: Reports: Hysterectomy Social & Family History - Tobacco Use Smoking Status *Q: Former Smoker Used Tobacco, but Quit: Yes Month/Year Tobacco Last Used: 2003 - Caffeine Use Caffeine Use: Reports: Coffee, Soda - Recreational Drug Use Recreational Drug Use: No H&P Review of Systems - Review of Systems: Review Of Systems: See Below General: Reports: Malaise, Weakness, Diaphoresis. Denies: Fever, Chills HEENT: Reports: No Symptoms Pulmonary: Reports: Shortness of Breath, Cough, Sputum. Denies: Wheezing, Pleuritic Chest Pain, Hemoptysis Cardiovascular: Reports: Chest Pain (Pleuritic pain), Dyspnea on Exertion. Denies: Palpitations, Orthopnea, PND, Edema, Lightheadedness Gastrointestinal: Reports: No Symptoms Genitourinary: Reports: No Symptoms Musculoskeletal: Reports: No Symptoms Skin: Reports: No Symptoms Psychiatric: Reports: No Symptoms Neurological: Reports: No Symptoms Hematologic/Lymphatic: Reports: No Symptoms Immunologic: Reports: No Symptoms Exam - Exam Exam: See Below - Vital Signs Vital Signs: Last Vital Signs Temp 98.7 F 11/22/18 17:05 Pulse 92 11/22/18 19:54 Resp 16 11/22/18 19:54 BP 110/57 L 11/22/18 19:54 Pulse Ox 93 L 11/22/18 19:54 Weight: 192 lb - Exam Quality Assessment: Supplemental Oxygen, DVT Prophylaxis General: Alert, Oriented, Cooperative, Moderate Distress HEENT: Conjunctiva Clear, Hearing Intact, Normal Nasal Septum, Posterior Pharynx Clear, Pupils Equal. No: Mucosa Moist & [place] Neck: Supple, Trachea Midline, +2 Carotid Pulse wo Bruit Lungs: Crackles, Rhonchi. No: Rales, Wheezing Cardiovascular: Regular Rate, Regular Rhythm, Normal S1, Normal S2. No: Systolic Murmur, Diastolic Murmur GI/Abdominal Exam: Soft, Non-Tender, No Organomegaly, No Distention, Other ( Incisional hernia) Back Exam: Normal Inspection, Full Range of Motion Extremities: Non-Tender, No Pedal Edema Skin: Warm, Dry, Intact Neurological: Cranial Nerves Intact, Strength Equal Bilateral, Normal Speech, Normal Tone, Sensation Intact. No: Focal Deficit Neuro Extensive - Mental Status: Alert, Oriented x3, Normal Mood/Affect, Normal Cognition, Memory Intact - Patient Data Lab Results Last 24 hrs: Laboratory Results - last 24 hr 11/22/18 11/22/18 11/22/18 Range/Units 17:37 17:37 18:22 WBC 14.9 H (4.5-11.0) K/uL RBC 4.63 (3.30-5.50) M/uL Hgb 13.4 (12.0-15.0) g/dL Hct 40.5 (36.0-48.0) % MCV 88 (80-98) fL MCH 29 (27-31) pg MCHC 33 (32-36) % Plt Count 380 (150-400) K/uL Neut % (Auto) 76 H (36-66) % Lymph % (Auto) 12 L (24-44) % [place] % (Auto) 11 H (2-6) % Eos % (Auto) 1 L (2-4) % Baso % (Auto) 0 (0-1) % Sodium 133 L (140-148) mmol/L Potassium 3.9 (3.6-5.2) mmol/L Chloride 96 L (100-108) mmol/L Carbon Dioxide 25 (21-32) mmol/L Anion Gap 15.9 H (5.0-14.0) mmol/L BUN 15 (7-18) mg/dL Creatinine 0.8 (0.6-1.0) mg/dL Est Cr Clr Drug Dosing 40.21 mL/min Estimated GFR (MDRD) > 60 (>60) Glucose 128 H (74-106) mg/dL Calcium 9.0 (8.5-10.1) mg/dL Total Bilirubin 0.3 (0.2-1.0) mg/dL AST 21 (15-37) U/L ALT 17 (12-78) U/L Alkaline Phosphatase 126 H (46-116) U/L Troponin I < 0.017 (0.000-0.056) ng/mL C-Reactive Protein 1.51 H (0.0-0.3) mg/dL Total Protein 7.9 (6.4-8.2) g/dL Albumin 3.1 L (3.4-5.0) g/dL Globulin 4.8 H (2.3-3.5) g/dL Albumin/Globulin Ratio 0.7 L (1.2-2.2) Lipase 68 L (73-393) U/L Urine Color Yellow (YELLOW) Urine Appearance Clear (CLEAR) Urine pH 7.0 (5.0-8.0) Ur Specific [place] 1.015 (1.008-1.030) Urine Protein Negative (NEGATIVE) mg/dL Urine Glucose (UA) Negative (NEGATIVE) mg/dL Urine Ketones Negative (NEGATIVE) mg/dL Urine Occult Blood Negative (NEGATIVE) Urine Nitrite Negative (NEGATIVE) Urine Bilirubin Negative (NEGATIVE) Urine Urobilinogen 0.2 (0.2-1.0) EU/dL Ur Leukocyte Esterase Negative (NEGATIVE) Urine RBC 0-5 (0-5) Urine WBC 0-5 (0-5) Ur Epithelial Cells Rare Amorphous Sediment Rare Urine Bacteria Not seen Urine Mucus Not seen Result Diagrams: 11/22/18 17:37 11/22/18 17:37 *Q Meaningful Use (ADM) - VTE Risk Assess *Q Each Risk Factor Represents 1 Point: Obesity ( BMI > 25 kg/m2) Total Score 1 Point Risk Factors: 1 Each Risk Factor Represents 2 Points: None Total Score 2 Point Risk Factors: 0 Each Risk Factor Represents 3 Points: Age 75 Years or Greater, History of DVT/PE Total Score 3 Point Risk Factors: 6 Each Risk Factor Represents 5 Points: None Total Score 5 Point Risk Factors: 0 Venous Thromboembolism Risk Factor Score *Q: 7 Problem List Initiated/Reviewed/Updated: Yes Orders Last 24hrs: Active Orders 24 hr Category Date Time Status Patient Status Manage Transfer [TRANSFER] Routine ADT 11/22/18 20:12 Ordered EKG Documentation Completion [RC] ASDIRECTED Care 11/22/18 16:57 Active Peripheral IV Care [RC] . DIRECTED Care 11/22/18 17:22 Active Azithromycin [Zithromax] 500 mg Med 11/22/18 19:28 Active Sodium Chloride 0.9% [Normal Saline] 250 ml IV ONETIME Sodium Chloride 0.9% [Normal Saline] 1,000 ml Med 11/22/18 17:30 Active IV ASDIRECTED Sodium Chloride 0.9% [Saline Flush] Med 11/22/18 17:22 Active 10 ml FLUSH ASDIRECTED PRN Peripheral IV Insertion Adult [OM.PC] Routine Oth 11/22/18 17:22 Ordered Resuscitation Status Routine Resus Stat 11/22/18 20:14 Ordered EKG 12 Lead [EK] Stat Ther 11/22/18 16:57 Ordered Medication Orders Sodium Chloride (Normal Saline) 1,000 mls @ 999 mls/hr IV ASDIRECTED LIBAN Last Admin: 11/22/18 17:32 Dose: 999 mls/hr Azithromycin 500 mg/ Sodium (Chloride) 250 mls @ 250 mls/hr IV ONETIME ONE Stop: 11/22/18 20:27 Sodium Chloride (Saline Flush) 10 ml FLUSH ASDIRECTED PRN PRN Reason: Keep Vein Open Last Admin: 11/22/18 17:33 Dose: 10 ml Assessment/Plan Comment:: ASSESSMENT AND PLAN LEFT LUNG PNEUMONIA-associated with pleuritic pain left chest, elevation in white blood cell count, and infiltrate noted on CT scan -Blood and sputum cultures pending -IV fluids -IV Rocephin and azithromycin pending culture results HYPOXIA-likely secondary to pneumonia and hypoventilation from pleuritic pain. -Continuous pulse oximeter -Nebulizer therapy as needed -Supplemental oxygen MAINTENANCE ISSUES -DVT prophylaxis; Lovenox 40 mg subcutaneous daily -GI prophylaxis; not indicated -Villasenor catheter; not indicated -Nutrition; 2 g sodium diet -Nicotine dependence; not required CODE STATUS-FULL CODE ADMISSION STATUS-patient will be admitted to inpatient status, expect at least a 2 night hospital stay for evaluation and management of problems as outlined above. At the time of this admission I do not reasonably expected evaluation and management of this problem will require more than a 96 hour hospital stay. DISPOSITION-anticipate discharge to home after the hospital stay. PRIMARY CARE PROVIDER-Dr. Taveras - Mortality Measure Prognosis:: Good
[2018-11-22] MEDS ORDERED: Albuterol 0.083% 2.5 MG/3 ML Neb Soln NEB PRN (21:14)
[2018-11-22] MEDS ORDERED: Ondansetron 4 MG/2 ML SDV IV PRN (21:14)
[2018-11-22] MEDS ORDERED: Enoxaparin 40 MG/0.4 ML Syringe SUBCUT SCH (21:14)
[2018-11-22] MEDS ORDERED: Polyethylene Glycol 3350 Powder 17 GM Packet PO PRN (21:14)
[2018-11-22] MEDS: amLODIPine 10 MG Tab PO SCH (22:39)
[2018-11-22] MEDS: Trospium 20 MG Tab PO SCH (22:40)
[2018-11-22] MEDS: Lactobacillus Rhamnosus GG (Probiotic) Cap PO SCH (22:40)
[2018-11-22] MEDS: Acetaminophen 325 MG Tab PO PRN (22:44)
[2018-11-23] MEDS ORDERED: Sodium Chloride 0.9% 500 ML IV ONE ×2 (01:00→02:00)
[2018-11-23] MEDS: Acetaminophen 325 MG Tab PO PRN ×3 (03:36→17:27)
[2018-11-23] MEDS: Levothyroxine 100 MCG Tab PO SCH (08:37)
[2018-11-23] MEDS: Lactobacillus Rhamnosus GG (Probiotic) Cap PO SCH ×2 (08:38→21:56)
[2018-11-23] MEDS: Trospium 20 MG Tab PO SCH ×2 (08:38→21:56)
[2018-11-23] MEDS: Sertraline 50 MG Tab PO SCH (08:38)
[2018-11-23] MEDS: Losartan 50 MG Tab PO SCH (08:39)
[2018-11-23] MEDS: amLODIPine 10 MG Tab PO SCH ×2 (08:41→21:56)
[2018-11-23] MEDS ORDERED: Latanoprost 0.005% Ophth Soln 2.5 ML Bottle EYELF SCH (09:00)
--- NOTE | 2018-11-23 10:26 | PCM.PN ---
- General Info Date of Service: 11/23/18 Subjective Update: Ms. Martínez feels somewhat improved today with less pleuritic pain in her left chest. She did have transient hypotension during the night that did respond to a fluid bolus. Respiratory status has been stable with adequate oxygenation on supplemental oxygen. Functional Status: Reports: Tolerating Diet, Urinating - Review of Systems General: Reports: Weakness, Malaise. Denies: Fever, Chills Pulmonary: Reports: Shortness of Breath, Pleuritic Chest Pain, Cough, Sputum. Denies: Hemoptysis, Wheezing Cardiovascular: Denies: Chest Pain, Palpitations, Dyspnea on Exertion, Orthopnea , PND, Edema Gastrointestinal: Reports: No Symptoms Musculoskeletal: Reports: No Symptoms - Patient Data Vitals - Most Recent: Last Vital Signs Temp 98.1 F 11/23/18 08:00 Pulse 73 11/23/18 08:00 Resp 14 11/23/18 08:00 BP 121/65 11/23/18 08:41 Pulse Ox 93 L 11/23/18 08:00 Weight - Most Recent: 10.582 oz I&O - Last 24 Hours: Intake & Output 11/22/18 11/23/18 11/23/18 22:59 06:59 14:59 Intake Total 1050 2290 Output Total 300 Balance 1050 2290 -300 Lab Results Last 24 Hours: Laboratory Results - last 24 hr 11/22/18 11/22/18 11/22/18 Range/Units 17:37 17:37 18:22 WBC 14.9 H (4.5-11.0) K/uL RBC 4.63 (3.30-5.50) M/uL Hgb 13.4 (12.0-15.0) g/dL Hct 40.5 (36.0-48.0) % MCV 88 (80-98) fL MCH 29 (27-31) pg MCHC 33 (32-36) % Plt Count 380 (150-400) K/uL Neut % (Auto) 76 H (36-66) % Lymph % (Auto) 12 L (24-44) % [place] % (Auto) 11 H (2-6) % Eos % (Auto) 1 L (2-4) % Baso % (Auto) 0 (0-1) % Sodium 133 L (140-148) mmol/L Potassium 3.9 (3.6-5.2) mmol/L Chloride 96 L (100-108) mmol/L Carbon Dioxide 25 (21-32) mmol/L Anion Gap 15.9 H (5.0-14.0) mmol/L BUN 15 (7-18) mg/dL Creatinine 0.8 (0.6-1.0) mg/dL Est Cr Clr Drug Dosing 40.21 mL/min Estimated GFR (MDRD) > 60 (>60) Glucose 128 H (74-106) mg/dL Calcium 9.0 (8.5-10.1) mg/dL Total Bilirubin 0.3 (0.2-1.0) mg/dL AST 21 (15-37) U/L ALT 17 (12-78) U/L Alkaline Phosphatase 126 H (46-116) U/L Troponin I < 0.017 (0.000-0.056) ng/mL C-Reactive Protein 1.51 H (0.0-0.3) mg/dL Total Protein 7.9 (6.4-8.2) g/dL Albumin 3.1 L (3.4-5.0) g/dL Globulin 4.8 H (2.3-3.5) g/dL Albumin/Globulin Ratio 0.7 L (1.2-2.2) Lipase 68 L (73-393) U/L TSH, Ultra Sensitive (0.358-3.740) uIU/mL Urine Color Yellow (YELLOW) Urine Appearance Clear (CLEAR) Urine pH 7.0 (5.0-8.0) Ur Specific [place] 1.015 (1.008-1.030) Urine Protein Negative (NEGATIVE) mg/dL Urine Glucose (UA) Negative (NEGATIVE) mg/dL Urine Ketones Negative (NEGATIVE) mg/dL Urine Occult Blood Negative (NEGATIVE) Urine Nitrite Negative (NEGATIVE) Urine Bilirubin Negative (NEGATIVE) Urine Urobilinogen 0.2 (0.2-1.0) EU/dL Ur Leukocyte Esterase Negative (NEGATIVE) Urine RBC 0-5 (0-5) Urine WBC 0-5 (0-5) Ur Epithelial Cells Rare Amorphous Sediment Rare Urine Bacteria Not seen Urine Mucus Not seen 11/23/18 11/23/18 11/23/18 Range/Units 04:15 04:15 04:15 WBC 12.4 H (4.5-11.0) K/uL RBC 3.95 (3.30-5.50) M/uL Hgb 11.3 L D (12.0-15.0) g/dL Hct 35.4 L (36.0-48.0) % MCV 90 (80-98) fL MCH 29 (27-31) pg MCHC 32 (32-36) % Plt Count 323 (150-400) K/uL Neut % (Auto) 70 H (36-66) % Lymph % (Auto) 16 L (24-44) % [place] % (Auto) 12 H (2-6) % Eos % (Auto) 2 (2-4) % Baso % (Auto) 0 (0-1) % Sodium 137 L (140-148) mmol/L Potassium 3.9 (3.6-5.2) mmol/L Chloride 104 (100-108) mmol/L Carbon Dioxide 26 (21-32) mmol/L Anion Gap 10.9 (5.0-14.0) mmol/L BUN 11 (7-18) mg/dL Creatinine 0.6 (0.6-1.0) mg/dL Est Cr Clr Drug Dosing 53.61 mL/min Estimated GFR (MDRD) > 60 (>60) Glucose 101 (74-106) mg/dL Calcium 8.2 L (8.5-10.1) mg/dL Total Bilirubin (0.2-1.0) mg/dL AST (15-37) U/L ALT (12-78) U/L Alkaline Phosphatase (46-116) U/L Troponin I (0.000-0.056) ng/mL C-Reactive Protein (0.0-0.3) mg/dL Total Protein (6.4-8.2) g/dL Albumin (3.4-5.0) g/dL Globulin (2.3-3.5) g/dL Albumin/Globulin Ratio (1.2-2.2) Lipase (73-393) U/L TSH, Ultra Sensitive 0.837 (0.358-3.740) uIU/mL Urine Color (YELLOW) Urine Appearance (CLEAR) Urine pH (5.0-8.0) Ur Specific [place] (1.008-1.030) Urine Protein (NEGATIVE) mg/dL Urine Glucose (UA) (NEGATIVE) mg/dL Urine Ketones (NEGATIVE) mg/dL Urine Occult Blood (NEGATIVE) Urine Nitrite (NEGATIVE) Urine Bilirubin (NEGATIVE) Urine Urobilinogen (0.2-1.0) EU/dL Ur Leukocyte Esterase (NEGATIVE) Urine RBC (0-5) Urine WBC (0-5) Ur Epithelial Cells Amorphous Sediment Urine Bacteria Urine Mucus Inocencio Results Last 24 Hours: Microbiology 11/23/18 03:41 Gram Stain - Final Sputum - Expectorated Med Orders - Current: Current Medications Acetaminophen (Tylenol) 650 mg PO Q4H PRN PRN Reason: Pain (Mild 1-3)/fever Last Admin: 11/23/18 03:36 Dose: 650 mg Albuterol (Proventil Neb Soln) 2.5 mg NEB Q4H PRN PRN Reason: Shortness Of Breath/wheezing Amlodipine Besylate (Norvasc) 10 mg PO BID [facility] Last Admin: 11/23/18 08:41 Dose: 10 mg Enoxaparin Sodium (Lovenox) 40 mg SUBCUT BEDTIME [facility] Azithromycin 500 mg/ Sodium (Chloride) 250 mls @ 250 mls/hr IV Q24H [facility] Ceftriaxone Sodium 1 gm/ (Sodium Chloride) 50 mls @ 100 mls/hr IV Q24H [facility] Lactated Ringer's (Ringers, Lactated) 1,000 mls @ 50 mls/hr IV ASDIRECTED [facility] Lactobacillus Rhamnosus (Culturelle) 1 cap PO BID [facility] Last Admin: 11/23/18 08:38 Dose: 1 cap Latanoprost (Xalatan 0.005% Ophth Soln) 0 ml EYELF BEDTIME [facility] Levothyroxine Sodium (Synthroid) 100 mcg PO DAILY@0730 [facility] Last Admin: 11/23/18 08:37 Dose: 100 mcg Losartan Potassium (Cozaar) 100 mg PO DAILY [facility] Last Admin: 11/23/18 08:39 Dose: 100 mg Ondansetron HCl (Zofran) 4 mg IV Q4H PRN PRN Reason: Nausea/Vomiting Oxycodone HCl (Oxycodone) 5 mg PO Q4H PRN PRN Reason: Chest Pain Polyethylene Glycol (Miralax) 17 gm PO DAILY PRN PRN Reason: Constipation Sertraline HCl (Zoloft) 100 mg PO DAILY [facility] Last Admin: 11/23/18 08:38 Dose: 100 mg Sodium Chloride (Saline Flush) 10 ml FLUSH ASDIRECTED PRN PRN Reason: Keep Vein Open Trospium (Sanctura) 20 mg PO BID [facility] Last Admin: 11/23/18 08:38 Dose: 20 mg Discontinued Medications Enoxaparin Sodium (Lovenox) 40 mg SUBCUT DAILY [facility] Last Admin: 11/22/18 22:41 Dose: 40 mg Hydromorphone HCl (Dilaudid) 0.5 mg IVPUSH ONETIME ONE Stop: 11/22/18 17:24 Last Admin: 11/22/18 17:30 Dose: 0.5 mg Hydromorphone HCl (Dilaudid) 0.5 mg IVPUSH ONETIME ONE Stop: 11/22/18 19:29 Last Admin: 11/22/18 19:51 Dose: 0.5 mg Sodium Chloride (Normal Saline) 1,000 mls @ 999 mls/hr IV ASDIRECTED [facility] Last Admin: 11/22/18 17:32 Dose: 999 mls/hr Azithromycin 500 mg/ Sodium (Chloride) 250 mls @ 250 mls/hr IV ONETIME ONE Stop: 11/22/18 20:27 Last Admin: 11/22/18 20:33 Dose: 250 mls/hr Ceftriaxone Sodium 1 gm/ (Sodium Chloride) 50 mls @ 100 mls/hr IV ONETIME ONE Stop: 11/22/18 19:56 Last Admin: 11/22/18 19:52 Dose: 100 mls/hr Sodium Chloride (Normal Saline) 1,000 mls @ 125 mls/hr IV ASDIRECTED [facility] Last Admin: 11/23/18 08:35 Dose: 125 mls/hr Sodium Chloride (Normal Saline) 500 mls @ 500 mls/hr IV BOLUS ONE Stop: 11/23/18 01:59 Last Admin: 11/23/18 01:13 Dose: 500 mls/hr Sodium Chloride (Normal Saline) 500 mls @ 250 mls/hr IV BOLUS ONE Stop: 11/23/18 03:59 Last Admin: 11/23/18 02:00 Dose: 250 mls/hr Ondansetron HCl (Zofran) 4 mg IVPUSH ONETIME ONE Stop: 11/22/18 17:23 Last Admin: 11/22/18 17:31 Dose: 4 mg Sodium Chloride (Saline Flush) 10 ml FLUSH ASDIRECTED PRN PRN Reason: Keep Vein Open Last Admin: 11/22/18 17:33 Dose: 10 ml - Exam Quality Assessment: DVT Prophylaxis General: Alert, Oriented, Cooperative, Mild Distress Lungs: Normal Respiratory Effort, Crackles, Rhonchi. No: Rales, Wheezing Cardiovascular: Regular Rate, Regular Rhythm, No Murmurs GI/Abdominal Exam: Soft, Non-Tender, No Organomegaly, No Distention Extremities: Non-Tender, No Pedal Edema - Problem List Review Problem List Initiated/Reviewed/Updated: Yes - My Orders Last 24 Hours: My Active Orders 11/22/18 20:14 Resuscitation Status Routine 11/22/18 21:14 Patient Status [ADT] Routine Ambulate [RC] QID Height and Weight [RC] DAILY Intake and Output [RC] QSHIFT Notify Provider Vital Signs [RC] ASDIRECTED Oxygen Therapy [RC] PRN Peripheral IV Care [RC] Q12H Pulse Oximetry [RC] CONTINUOUS RT Aerosol Therapy [RC] ASDIRECTED Up With Assistance [RC] ASDIRECTED Up to Chair [RC] QID VTE/DVT Education [RC] Per Unit Routine Vital Signs [RC] Q4H Acetaminophen [Tylenol] 650 mg PO Q4H PRN Albuterol [Proventil Neb Soln] 2.5 mg NEB Q4H PRN Lactobacillus Rhamnosus GG [Culturelle] 1 cap PO BID Ondansetron [Zofran] 4 mg IV Q4H PRN Polyethylene Glycol 3350 [MiraLAX] 17 gm PO DAILY PRN Sodium Chloride 0.9% [Saline Flush] 10 ml FLUSH ASDIRECTED PRN amLODIPine [Norvasc] 10 mg PO BID Peripheral IV Insertion Adult [OM.PC] Routine 11/22/18 21:17 Blood Culture x2 Reflex Set [OM.PC] Urgent 11/22/18 21:25 CULTURE BLOOD [BC] Stat 11/22/18 21:30 CULTURE BLOOD [BC] Stat Trospium [Sanctura] 20 mg PO BID 11/22/18 23:33 oxyCODONE 5 mg PO Q4H PRN 11/22/18 Dinner 2 Gram Sodium Diet [DIET] 11/23/18 03:41 CULTURE RESPIRATORY + SMEAR [RM] Routine 11/23/18 07:30 Levothyroxine [Synthroid] 100 mcg PO DAILY@0730 11/23/18 09:00 Losartan [Cozaar] 100 mg PO DAILY Sertraline [Zoloft] 100 mg PO DAILY 11/23/18 10:30 Lactated Ringers [Ringers, Lactated] 1,000 ml IV ASDIRECTED 11/23/18 20:00 cefTRIAXone [Rocephin] 1 gm Sodium Chloride 0.9% [Normal Saline] 50 ml IV Q24H 11/23/18 20:30 Azithromycin [Zithromax] 500 mg Sodium Chloride 0.9% [Normal Saline] 250 ml IV Q24H 11/23/18 21:00 Enoxaparin [Lovenox] 40 mg SUBCUT BEDTIME Latanoprost [Xalatan 0.005% Ophth Soln] 0 ml EYELF BEDTIME 11/24/18 05:00 BASIC METABOLIC PANEL,BMP [CHEM] Timed CBC WITH AUTO DIFF [HEME] Timed - Plan Plan:: ASSESSMENT AND PLAN LEFT LUNG PNEUMONIA-associated with pleuritic pain left chest, elevation in white blood cell count, and infiltrate noted on CT scan. -Blood and sputum cultures pending -IV fluids -IV Rocephin and azithromycin pending culture results HYPOXIA-likely secondary to pneumonia and hypoventilation from pleuritic pain. -Continuous pulse oximeter -Nebulizer therapy as needed -Supplemental oxygen MAINTENANCE ISSUES -DVT prophylaxis; Lovenox 40 mg subcutaneous daily -GI prophylaxis; not indicated -Villasenor catheter; not indicated -Nutrition; 2 g sodium diet -Nicotine dependence; not required CODE STATUS-FULL CODE ADMISSION STATUS-patient will be admitted to inpatient status, expect at least a 2 night hospital stay for evaluation and management of problems as outlined above. At the time of this admission I do not reasonably expected evaluation and management of this problem will require more than a 96 hour hospital stay. DISPOSITION-anticipate discharge to home after the hospital stay. PRIMARY CARE PROVIDER-Dr. Taveras
[2018-11-23] MEDS ORDERED: Lactated Ringers 1,000 ML IV SCH (10:30)
[2018-11-23] MEDS: oxyCODONE 5 MG Tab PO PRN (18:05)
[2018-11-23] MEDS: cefTRIAXone 1 GM in Sodium Chloride 0.9% 50 ML IV SCH (19:39)
[2018-11-23] MEDS: Azithromycin 500 MG in Sodium Chloride 0.9% 250 ML IV SCH (20:26)
[2018-11-23] MEDS: Enoxaparin 40 MG/0.4 ML Syringe SUBCUT SCH (21:56)
[2018-11-23] MEDS: Latanoprost 0.005% Ophth Soln 2.5 ML Bottle EYELF SCH (21:56)
[2018-11-24] MEDS: Acetaminophen 325 MG Tab PO PRN ×2 (01:24→13:15)
[2018-11-24] MEDS: Losartan 50 MG Tab PO SCH (08:41)
[2018-11-24] MEDS: Levothyroxine 100 MCG Tab PO SCH (08:41)
[2018-11-24] MEDS: Sertraline 50 MG Tab PO SCH (08:42)
[2018-11-24] MEDS: amLODIPine 10 MG Tab PO SCH ×2 (08:42→20:34)
[2018-11-24] MEDS: Trospium 20 MG Tab PO SCH ×2 (08:42→20:34)
[2018-11-24] MEDS: Lactobacillus Rhamnosus GG (Probiotic) Cap PO SCH ×2 (08:42→20:33)
--- NOTE | 2018-11-24 09:50 | PCM.PN ---
- General Info Date of Service: 11/24/18 Subjective Update: Ms. Martínez is noted further improvement since yesterday with less pleuritic pain in the left chest. Vital signs have remained stable and she has been afebrile, white blood cell count is within normal range. Continues to require supplemental oxygen to maintain adequate oxygenation. Functional Status: Reports: Tolerating Diet, Ambulating, Urinating - Review of Systems Pulmonary: Reports: No Symptoms Cardiovascular: Reports: No Symptoms Gastrointestinal: Reports: No Symptoms - Patient Data Vitals - Most Recent: Last Vital Signs Temp 96.2 F 11/24/18 07:35 Pulse 68 11/24/18 07:35 Resp 18 11/24/18 07:35 BP 119/64 11/24/18 08:42 Pulse Ox 92 L 11/24/18 07:35 Weight - Most Recent: 204 lb 5.896 oz I&O - Last 24 Hours: Intake & Output 11/23/18 11/24/18 11/24/18 22:59 06:59 14:59 Intake Total 847 859 400 Output Total 100 600 600 Balance 747 259 -200 Lab Results Last 24 Hours: Laboratory Results - last 24 hr 11/24/18 11/24/18 Range/Units 04:17 05:00 WBC 11.0 (4.5-11.0) K/uL RBC 3.94 (3.30-5.50) M/uL Hgb 11.3 L (12.0-15.0) g/dL Hct 35.3 L (36.0-48.0) % MCV 90 (80-98) fL MCH 29 (27-31) pg MCHC 32 (32-36) % Plt Count 320 (150-400) K/uL Neut % (Auto) 68 H (36-66) % Lymph % (Auto) 16 L (24-44) % [place] % (Auto) 13 H (2-6) % Eos % (Auto) 3 (2-4) % Baso % (Auto) 0 (0-1) % Sodium 139 L (140-148) mmol/L Potassium 3.9 (3.6-5.2) mmol/L Chloride 105 (100-108) mmol/L Carbon Dioxide 28 (21-32) mmol/L Anion Gap 9.9 (5.0-14.0) mmol/L BUN 7 (7-18) mg/dL Creatinine 0.6 (0.6-1.0) mg/dL Est Cr Clr Drug Dosing 53.67 mL/min Estimated GFR (MDRD) > 60 (>60) Glucose 89 (74-106) mg/dL Calcium 8.4 L (8.5-10.1) mg/dL Inocencio Results Last 24 Hours: Microbiology 11/23/18 03:41 Gram Stain - Final Sputum - Expectorated Respiratory Culture - Preliminary NORMAL RESPIRATORY CJ 1 DAY 11/22/18 21:25 Aerobic Blood Culture - Preliminary Blood - Arm, Right NO GROWTH AFTER 1 DAY Anaerobic Blood Culture - Preliminary NO GROWTH AFTER 1 DAY 11/22/18 21:30 Aerobic Blood Culture - Preliminary Blood - Arm, Right NO GROWTH AFTER 1 DAY Anaerobic Blood Culture - Preliminary NO GROWTH AFTER 1 DAY Med Orders - Current: Current Medications Acetaminophen (Tylenol) 650 mg PO Q4H PRN PRN Reason: Pain (Mild 1-3)/fever Last Admin: 11/24/18 01:24 Dose: 650 mg Albuterol (Proventil Neb Soln) 2.5 mg NEB Q4H PRN PRN Reason: Shortness Of Breath/wheezing Amlodipine Besylate (Norvasc) 10 mg PO BID [facility] Last Admin: 11/24/18 08:42 Dose: 10 mg Enoxaparin Sodium (Lovenox) 40 mg SUBCUT BEDTIME [facility] Last Admin: 11/23/18 21:56 Dose: 40 mg Azithromycin 500 mg/ Sodium (Chloride) 250 mls @ 250 mls/hr IV Q24H [facility] Last Admin: 11/23/18 20:26 Dose: 250 mls/hr Ceftriaxone Sodium 1 gm/ (Sodium Chloride) 50 mls @ 100 mls/hr IV Q24H [facility] Last Admin: 11/23/18 19:39 Dose: 100 mls/hr Lactobacillus Rhamnosus (Culturelle) 1 cap PO BID [facility] Last Admin: 11/24/18 08:42 Dose: 1 cap Latanoprost (Xalatan 0.005% Ophth Soln) 0 ml EYELF BEDTIME [facility] Last Admin: 11/23/18 21:56 Dose: 1 drop Levothyroxine Sodium (Synthroid) 100 mcg PO DAILY@0730 [facility] Last Admin: 11/24/18 08:41 Dose: 100 mcg Losartan Potassium (Cozaar) 100 mg PO DAILY [facility] Last Admin: 11/24/18 08:41 Dose: 100 mg Ondansetron HCl (Zofran) 4 mg IV Q4H PRN PRN Reason: Nausea/Vomiting Oxycodone HCl (Oxycodone) 5 mg PO Q4H PRN PRN Reason: Chest Pain Last Admin: 11/23/18 18:05 Dose: 5 mg Polyethylene Glycol (Miralax) 17 gm PO DAILY PRN PRN Reason: Constipation Senna/Docusate Sodium (Senna Plus) 1 tab PO BID PRN PRN Reason: Constipation Last Admin: 11/23/18 22:14 Dose: 1 tab Sertraline HCl (Zoloft) 100 mg PO DAILY [facility] Last Admin: 11/24/18 08:42 Dose: 100 mg Sodium Chloride (Saline Flush) 10 ml FLUSH ASDIRECTED PRN PRN Reason: Keep Vein Open Trospium (Sanctura) 20 mg PO BID [facility] Last Admin: 11/24/18 08:42 Dose: 20 mg Discontinued Medications Enoxaparin Sodium (Lovenox) 40 mg SUBCUT DAILY [facility] Last Admin: 11/22/18 22:41 Dose: 40 mg Hydromorphone HCl (Dilaudid) 0.5 mg IVPUSH ONETIME ONE Stop: 11/22/18 17:24 Last Admin: 11/22/18 17:30 Dose: 0.5 mg Hydromorphone HCl (Dilaudid) 0.5 mg IVPUSH ONETIME ONE Stop: 11/22/18 19:29 Last Admin: 11/22/18 19:51 Dose: 0.5 mg Sodium Chloride (Normal Saline) 1,000 mls @ 999 mls/hr IV ASDIRECTED [facility] Last Admin: 11/22/18 17:32 Dose: 999 mls/hr Azithromycin 500 mg/ Sodium (Chloride) 250 mls @ 250 mls/hr IV ONETIME ONE Stop: 11/22/18 20:27 Last Admin: 11/22/18 20:33 Dose: 250 mls/hr Ceftriaxone Sodium 1 gm/ (Sodium Chloride) 50 mls @ 100 mls/hr IV ONETIME ONE Stop: 11/22/18 19:56 Last Admin: 11/22/18 19:52 Dose: 100 mls/hr Sodium Chloride (Normal Saline) 1,000 mls @ 125 mls/hr IV ASDIRECTED [facility] Last Admin: 11/23/18 08:35 Dose: 125 mls/hr Sodium Chloride (Normal Saline) 500 mls @ 500 mls/hr IV BOLUS ONE Stop: 11/23/18 01:59 Last Admin: 11/23/18 01:13 Dose: 500 mls/hr Sodium Chloride (Normal Saline) 500 mls @ 250 mls/hr IV BOLUS ONE Stop: 11/23/18 03:59 Last Admin: 11/23/18 02:00 Dose: 250 mls/hr Lactated Ringer's (Ringers, Lactated) 1,000 mls @ 50 mls/hr IV ASDIRECTED [facility] Last Admin: 11/23/18 12:10 Dose: 50 mls/hr Ondansetron HCl (Zofran) 4 mg IVPUSH ONETIME ONE Stop: 11/22/18 17:23 Last Admin: 11/22/18 17:31 Dose: 4 mg Sodium Chloride (Saline Flush) 10 ml FLUSH ASDIRECTED PRN PRN Reason: Keep Vein Open Last Admin: 11/22/18 17:33 Dose: 10 ml - Exam Quality Assessment: Supplemental Oxygen, DVT Prophylaxis General: Alert, Oriented, Cooperative, Mild Distress Lungs: Normal Respiratory Effort, Crackles, Rhonchi Cardiovascular: Regular Rate, Regular Rhythm, No Murmurs GI/Abdominal Exam: Soft, Non-Tender, No Organomegaly, No Distention Extremities: Non-Tender, No Pedal Edema - Problem List Review Problem List Initiated/Reviewed/Updated: Yes - My Orders Last 24 Hours: My Active Orders 11/23/18 09:00 Losartan [Cozaar] 100 mg PO DAILY Sertraline [Zoloft] 100 mg PO DAILY 11/23/18 15:44 Docusate Sodium/Sennosides [Senna Plus] 1 tab PO BID PRN 11/23/18 20:00 cefTRIAXone [Rocephin] 1 gm Sodium Chloride 0.9% [Normal Saline] 50 ml IV Q24H 11/23/18 20:30 Azithromycin [Zithromax] 500 mg Sodium Chloride 0.9% [Normal Saline] 250 ml IV Q24H 11/23/18 21:00 Enoxaparin [Lovenox] 40 mg SUBCUT BEDTIME Latanoprost [[facility]] 0 ml EYELF BEDTIME 11/24/18 09:47 Convert IV to Saline Lock [OM.PC] Routine - Plan Plan:: ASSESSMENT AND PLAN LEFT LUNG PNEUMONIA-associated with pleuritic pain left chest, afebrile with normalization of white blood cell count -Blood and sputum cultures pending -Saline lock IV -IV Rocephin and azithromycin pending culture results HYPOXIA-likely secondary to pneumonia and hypoventilation from pleuritic pain. -Continuous pulse oximeter -Nebulizer therapy as needed -Supplemental oxygen MAINTENANCE ISSUES -DVT prophylaxis; Lovenox 40 mg subcutaneous daily -GI prophylaxis; not indicated -Villasenor catheter; not indicated -Nutrition; 2 g sodium diet -Nicotine dependence; not required CODE STATUS-FULL CODE ADMISSION STATUS-patient will be admitted to inpatient status, expect at least a 2 night hospital stay for evaluation and management of problems as outlined above. At the time of this admission I do not reasonably expected evaluation and management of this problem will require more than a 96 hour hospital stay. DISPOSITION-anticipate discharge to home after the hospital stay. PRIMARY CARE PROVIDER-Dr. Taveras
[2018-11-24] MEDS: oxyCODONE 5 MG Tab PO PRN (20:32)
[2018-11-24] MEDS: cefTRIAXone 1 GM in Sodium Chloride 0.9% 50 ML IV SCH (20:33)
[2018-11-24] MEDS: Azithromycin 500 MG in Sodium Chloride 0.9% 250 ML IV SCH (20:33)
[2018-11-24] MEDS: Enoxaparin 40 MG/0.4 ML Syringe SUBCUT SCH (20:34)
[2018-11-24] MEDS: Latanoprost 0.005% Ophth Soln 2.5 ML Bottle EYELF SCH (20:34)
[2018-11-25] MEDS: Levothyroxine 100 MCG Tab PO SCH (07:15)
[2018-11-25] MEDS: Losartan 50 MG Tab PO SCH (09:28)
[2018-11-25] MEDS: Lactobacillus Rhamnosus GG (Probiotic) Cap PO SCH ×2 (09:29→20:27)
[2018-11-25] MEDS: Trospium 20 MG Tab PO SCH ×2 (09:29→20:27)
[2018-11-25] MEDS: Sertraline 50 MG Tab PO SCH (09:29)
[2018-11-25] MEDS: amLODIPine 10 MG Tab PO SCH ×2 (09:29→20:27)
--- NOTE | 2018-11-25 12:03 | PCM.PN ---
- General Info Date of Service: 11/25/18 Subjective Update: Ms. Martínez has been stable over the last 24 hours. Cough is slowly improved as has her left chest pleuritic pain. Vital signs have been stable and she has remained afebrile. Functional Status: Reports: Pain Controlled, Tolerating Diet, Ambulating, Urinating - Review of Systems General: Reports: Weakness. Denies: Fever, Chills Pulmonary: Reports: Shortness of Breath, Cough, Sputum. Denies: Pleuritic Chest Pain, Hemoptysis, Wheezing Cardiovascular: Reports: Dyspnea on Exertion. Denies: Chest Pain, Palpitations , Orthopnea, PND, Edema, Lightheadedness Gastrointestinal: Reports: No Symptoms - Patient Data Vitals - Most Recent: Last Vital Signs Temp 97.5 F 11/25/18 11:16 Pulse 71 11/25/18 11:16 Resp 18 11/25/18 11:16 BP 103/66 11/25/18 11:16 Pulse Ox 93 L 11/25/18 11:16 Weight - Most Recent: 194 lb 4 oz I&O - Last 24 Hours: Intake & Output 11/24/18 11/25/18 11/25/18 22:59 06:59 14:59 Intake Total 480 Output Total 600 Balance -120 Inocencio Results Last 24 Hours: Microbiology 11/23/18 03:41 Gram Stain - Final Sputum - Expectorated Respiratory Culture - Final NORMAL RESPIRATORY CJ 2 DAYS 11/22/18 21:30 Aerobic Blood Culture - Preliminary Blood - Arm, Right NO GROWTH AFTER 2 DAYS Anaerobic Blood Culture - Preliminary NO GROWTH AFTER 2 DAYS 11/22/18 21:25 Aerobic Blood Culture - Preliminary Blood - Arm, Right NO GROWTH AFTER 2 DAYS Anaerobic Blood Culture - Preliminary NO GROWTH AFTER 2 DAYS Med Orders - Current: Current Medications Acetaminophen (Tylenol) 650 mg PO Q4H PRN PRN Reason: Pain (Mild 1-3)/fever Last Admin: 11/24/18 13:15 Dose: 650 mg Albuterol (Proventil Neb Soln) 2.5 mg NEB Q4H PRN PRN Reason: Shortness Of Breath/wheezing Amlodipine Besylate (Norvasc) 10 mg PO BID [facility] Last Admin: 11/25/18 09:29 Dose: 10 mg Enoxaparin Sodium (Lovenox) 40 mg SUBCUT BEDTIME [facility] Last Admin: 11/24/18 20:34 Dose: 40 mg Azithromycin 500 mg/ Sodium (Chloride) 250 mls @ 250 mls/hr IV Q24H [facility] Last Admin: 11/24/18 20:33 Dose: 250 mls/hr Ceftriaxone Sodium 1 gm/ (Sodium Chloride) 50 mls @ 100 mls/hr IV Q24H [facility] Last Admin: 11/24/18 20:33 Dose: 100 mls/hr Lactobacillus Rhamnosus (Culturelle) 1 cap PO BID [facility] Last Admin: 11/25/18 09:29 Dose: 1 cap Latanoprost (Xalatan 0.005% Ophth Soln) 0 ml EYELF BEDTIME [facility] Last Admin: 11/24/18 20:34 Dose: 1 drop Levothyroxine Sodium (Synthroid) 100 mcg PO DAILY@0730 [facility] Last Admin: 11/25/18 07:15 Dose: 100 mcg Losartan Potassium (Cozaar) 100 mg PO DAILY [facility] Last Admin: 11/25/18 09:28 Dose: 100 mg Ondansetron HCl (Zofran) 4 mg IV Q4H PRN PRN Reason: Nausea/Vomiting Oxycodone HCl (Oxycodone) 5 mg PO Q4H PRN PRN Reason: Chest Pain Last Admin: 11/24/18 20:32 Dose: 5 mg Polyethylene Glycol (Miralax) 17 gm PO DAILY PRN PRN Reason: Constipation Senna/Docusate Sodium (Senna Plus) 1 tab PO BID PRN PRN Reason: Constipation Last Admin: 11/24/18 20:39 Dose: 1 tab Sertraline HCl (Zoloft) 100 mg PO DAILY [facility] Last Admin: 11/25/18 09:29 Dose: 100 mg Sodium Chloride (Saline Flush) 10 ml FLUSH ASDIRECTED PRN PRN Reason: Keep Vein Open Trospium (Sanctura) 20 mg PO BID [facility] Last Admin: 11/25/18 09:29 Dose: 20 mg Discontinued Medications Enoxaparin Sodium (Lovenox) 40 mg SUBCUT DAILY [facility] Last Admin: 11/22/18 22:41 Dose: 40 mg Hydromorphone HCl (Dilaudid) 0.5 mg IVPUSH ONETIME ONE Stop: 11/22/18 17:24 Last Admin: 11/22/18 17:30 Dose: 0.5 mg Hydromorphone HCl (Dilaudid) 0.5 mg IVPUSH ONETIME ONE Stop: 11/22/18 19:29 Last Admin: 11/22/18 19:51 Dose: 0.5 mg Sodium Chloride (Normal Saline) 1,000 mls @ 999 mls/hr IV ASDIRECTED [facility] Last Admin: 11/22/18 17:32 Dose: 999 mls/hr Azithromycin 500 mg/ Sodium (Chloride) 250 mls @ 250 mls/hr IV ONETIME ONE Stop: 11/22/18 20:27 Last Admin: 11/22/18 20:33 Dose: 250 mls/hr Ceftriaxone Sodium 1 gm/ (Sodium Chloride) 50 mls @ 100 mls/hr IV ONETIME ONE Stop: 11/22/18 19:56 Last Admin: 11/22/18 19:52 Dose: 100 mls/hr Sodium Chloride (Normal Saline) 1,000 mls @ 125 mls/hr IV ASDIRECTED [facility] Last Admin: 11/23/18 08:35 Dose: 125 mls/hr Sodium Chloride (Normal Saline) 500 mls @ 500 mls/hr IV BOLUS ONE Stop: 11/23/18 01:59 Last Admin: 11/23/18 01:13 Dose: 500 mls/hr Sodium Chloride (Normal Saline) 500 mls @ 250 mls/hr IV BOLUS ONE Stop: 11/23/18 03:59 Last Admin: 11/23/18 02:00 Dose: 250 mls/hr Lactated Ringer's (Ringers, Lactated) 1,000 mls @ 50 mls/hr IV ASDIRECTED [facility] Last Admin: 11/23/18 12:10 Dose: 50 mls/hr Ondansetron HCl (Zofran) 4 mg IVPUSH ONETIME ONE Stop: 11/22/18 17:23 Last Admin: 11/22/18 17:31 Dose: 4 mg Sodium Chloride (Saline Flush) 10 ml FLUSH ASDIRECTED PRN PRN Reason: Keep Vein Open Last Admin: 11/22/18 17:33 Dose: 10 ml - Exam Quality Assessment: Supplemental Oxygen, DVT Prophylaxis General: Alert, Oriented, Cooperative, Mild Distress Lungs: Clear to Auscultation, Normal Respiratory Effort, Crackles, Rhonchi. No : Wheezing Cardiovascular: Regular Rate, Regular Rhythm, No Murmurs GI/Abdominal Exam: Soft, Non-Tender, No Organomegaly, No Distention Extremities: Non-Tender, No Pedal Edema - Problem List Review Problem List Initiated/Reviewed/Updated: Yes - Plan Plan:: ASSESSMENT AND PLAN LEFT LUNG PNEUMONIA-associated with pleuritic pain left chest, afebrile with normalization of white blood cell count. -Blood and sputum cultures pending -Saline lock IV -IV Rocephin and azithromycin pending culture results HYPOXIA-likely secondary to pneumonia and hypoventilation from pleuritic pain. -Continuous pulse oximeter -Nebulizer therapy as needed -Supplemental oxygen MAINTENANCE ISSUES -DVT prophylaxis; Lovenox 40 mg subcutaneous daily -GI prophylaxis; not indicated -Villasenor catheter; not indicated -Nutrition; 2 g sodium diet -Nicotine dependence; not required CODE STATUS-FULL CODE ADMISSION STATUS-patient will be admitted to inpatient status, expect at least a 2 night hospital stay for evaluation and management of problems as outlined above. At the time of this admission I do not reasonably expected evaluation and management of this problem will require more than a 96 hour hospital stay. DISPOSITION-anticipate discharge to home after the hospital stay. PRIMARY CARE PROVIDER-Dr. Taveras
[2018-11-25] MEDS: cefTRIAXone 1 GM in Sodium Chloride 0.9% 50 ML IV SCH (19:20)
[2018-11-25] MEDS: oxyCODONE 5 MG Tab PO PRN (20:26)
[2018-11-25] MEDS: Enoxaparin 40 MG/0.4 ML Syringe SUBCUT SCH (20:27)
[2018-11-25] MEDS: Azithromycin 500 MG in Sodium Chloride 0.9% 250 ML IV SCH (20:28)
[2018-11-25] MEDS: Latanoprost 0.005% Ophth Soln 2.5 ML Bottle EYELF SCH (20:28)
[2018-11-26] MEDS: Levothyroxine 100 MCG Tab PO SCH (08:55)
[2018-11-26] MEDS: Lactobacillus Rhamnosus GG (Probiotic) Cap PO SCH (09:04)
[2018-11-26] MEDS: Trospium 20 MG Tab PO SCH (09:06)
[2018-11-26] MEDS: Losartan 50 MG Tab PO SCH (10:12)
[2018-11-26] MEDS: amLODIPine 10 MG Tab PO SCH (10:12)
[2018-11-26] MEDS: Sertraline 50 MG Tab PO SCH (10:13)
--- NOTE | 2018-11-26 10:30 | PCM.DCSUM1 ---
Discharge Summary - Hospital Course Brief History: Ms. Martínez is an 83-year-old woman who was admitted through the emergency department with shortness of breath, hypoxia, cough, and pleuritic chest pain, secondary to pneumonia. - Discharge Data Discharge Date: 11/26/18 Discharge Disposition: DC/Tfer to [facility] Condition: Fair - Referral to Home Health Primary Care Physician: Nemesio Taveras MD - Discharge Diagnosis/Problem(s) (1) Pneumonia SNOMED Code(s): 786257161 ICD Code: J18.9 - PNEUMONIA, UNSPECIFIED ORGANISM Status: Acute Current Visit: Yes Qualifiers: Pneumonia type: due to unspecified organism Laterality: left Lung location: lower lobe of lung Qualified Code(s): J18.1 - Lobar pneumonia, unspecified organism (2) Hypoxia SNOMED Code(s): 795481562 ICD Code: R09.02 - HYPOXEMIA Status: Acute Current Visit: Yes (3) Pleurisy without effusion SNOMED Code(s): 123163494 ICD Code: R09.1 - PLEURISY Status: Acute Current Visit: Yes - Patient Summary/Data Hospital Course: Ms. Martínez is an 83-year-old woman who was admitted through the emergency department with cough, shortness of breath, and chest wall pain, secondary to left lung pneumonia. She was feeling fairly well until yesterday afternoon when she began to develop pleuritic pain in her lower left chest wall, present anteriorly laterally and posteriorly. Became worse today and she presented to the emergency department for further evaluation. She has experienced some sweating but is not aware of specific fever or chills. Cough has been productive of some green sputum, but remains fairly infrequent. On evaluation the emergency department her white blood cell count is elevated and she was found to be hypoxic with oxygen saturation of 88% on room air. Oxygenation has improved with supplemental oxygen. CT scan of the chest abdomen and pelvis was obtained showing evidence of an infiltrate in the left lung. Blood cultures were obtained at the time of admission and she was started on IV antibiotic therapy for community-acquired pneumonia with ceftriaxone and azithromycin. Blood cultures remain negative throughout the hospital stay. She was treated with pain medication for her pleuritic chest wall pain. By the time of discharge chest wall pain had significantly improved but had not totally resolved. By the time of discharge she completed a course of azithromycin and she will be discharged home on an additional 2 days of cefdinir 300 mg twice daily. She initially required supplemental oxygen to maintain adequate oxygenation, but the time of discharge she had adequate saturations on room air. Activity will be as tolerated and she will resume her usual diet. Follow- up appointment should be scheduled with her primary care provider Dr. Taveras within one week. Chest x-ray should be obtained at the time of the appointment and followed until clear. Residual infiltrate is not noted on chest x-ray consider CT scan for follow-up as there was question of possible mass versus infiltrate. - Patient Instructions Diet: Low Sodium Activity: As Tolerated Other/Special Instructions: Please schedule follow-up appointment with primary care provider within one week. Chest x-ray should be obtained at the time of follow-up appointment, to evaluate for improvement and resolution of infiltrate. - Discharge Plan *PRESCRIPTION DRUG MONITORING PROGRAM REVIEWED*: Not Applicable *COPY OF PRESCRIPTION DRUG MONITORING REPORT IN PATIENT BRENDA: Not Applicable Prescriptions/Med Rec: Cefdinir [Omnicef] 300 mg PO BID #6 cap Lactobacillus Rhamnosus GG [Culturelle] 1 cap PO BID #60 cap Home Medications: Home Meds Cholecalciferol (Vitamin D3) [Vitamin D3] 1,000 units PO DAILY 06/17/16 [History ] Cyanocobalamin (Vitamin B12) [Vitamin B12] 1,000 mcg IJ ASDIRECTED 06/17/16 [ History] Iron-Vitamin C 65 - 125 mg PO DAILY 06/17/16 [History] Latanoprost 1 drop EYELF DAILY 06/17/16 [History] Levothyroxine [Synthroid] 100 mcg PO DAILY 06/17/16 [History] Losartan Potassium [Cozaar] 100 mg PO DAILY 06/17/16 [History] Meclizine [Antivert] 25 mg PO Q6H PRN 06/17/16 [History] Sertraline [Zoloft] 100 mg PO DAILY 06/17/16 [History] amLODIPine [Norvasc] 10 mg PO BID 06/17/16 [History] Tolterodine Tartrate [Tolterodine Tartrate ER] 1 tab PO BEDTIME 11/22/18 [ History] Cefdinir [Omnicef] 300 mg PO BID #6 cap 11/26/18 [Rx] Lactobacillus Rhamnosus GG [Culturelle] 1 cap PO BID #60 cap 11/26/18 [Rx] Patient Handouts: Community-Acquired Pneumonia, Adult Referrals: Nemesio Taveras MD [Primary Care Provider] - - Discharge Summary/Plan Comment DC Time >30 min.: No - Patient Data Vitals - Most Recent: Last Vital Signs Temp 96.9 F 11/26/18 07:14 Pulse 90 11/26/18 07:14 Resp 16 11/25/18 22:26 BP 134/66 11/26/18 10:12 Pulse Ox 91 L 11/26/18 07:22 Weight - Most Recent: 194 lb 7 oz I&O - Last 24 hours: Intake & Output 11/25/18 11/26/18 11/26/18 22:59 06:59 14:59 Intake Total 480 250 360 Output Total 500 400 500 Balance -20 -150 -140 PAUL Results - Last 24 hrs: Microbiology 11/22/18 21:30 Aerobic Blood Culture - Preliminary Blood - Arm, Right NO GROWTH AFTER 3 DAYS Anaerobic Blood Culture - Preliminary NO GROWTH AFTER 3 DAYS 11/22/18 21:25 Aerobic Blood Culture - Preliminary Blood - Arm, Right NO GROWTH AFTER 3 DAYS Anaerobic Blood Culture - Preliminary NO GROWTH AFTER 3 DAYS 11/23/18 03:41 Gram Stain - Final Sputum - Expectorated Respiratory Culture - Final NORMAL RESPIRATORY CJ 2 DAYS Med Orders - Current: Current Medications Acetaminophen (Tylenol) 650 mg PO Q4H PRN PRN Reason: Pain (Mild 1-3)/fever Last Admin: 11/24/18 13:15 Dose: 650 mg Albuterol (Proventil Neb Soln) 2.5 mg NEB Q4H PRN PRN Reason: Shortness Of Breath/wheezing Last Admin: 11/25/18 19:22 Dose: 2.5 mg Amlodipine Besylate (Norvasc) 10 mg PO BID [facility] Last Admin: 11/26/18 10:12 Dose: 10 mg Enoxaparin Sodium (Lovenox) 40 mg SUBCUT BEDTIME [facility] Last Admin: 11/25/18 20:27 Dose: 40 mg Azithromycin 500 mg/ Sodium (Chloride) 250 mls @ 250 mls/hr IV Q24H [facility] Last Admin: 11/25/18 20:28 Dose: 250 mls/hr Ceftriaxone Sodium 1 gm/ (Sodium Chloride) 50 mls @ 100 mls/hr IV Q24H [facility] Last Admin: 11/25/18 19:20 Dose: 100 mls/hr Lactobacillus Rhamnosus (Culturelle) 1 cap PO BID [facility] Last Admin: 11/26/18 09:04 Dose: 1 cap Latanoprost (Xalatan 0.005% Ophth Soln) 0 ml EYELF BEDTIME [facility] Last Admin: 11/25/18 20:28 Dose: 1 drop Levothyroxine Sodium (Synthroid) 100 mcg PO DAILY@0730 [facility] Last Admin: 11/26/18 08:55 Dose: 100 mcg Losartan Potassium (Cozaar) 100 mg PO DAILY [facility] Last Admin: 11/26/18 10:12 Dose: 100 mg Ondansetron HCl (Zofran) 4 mg IV Q4H PRN PRN Reason: Nausea/Vomiting Last Admin: 11/26/18 09:00 Dose: 4 mg Oxycodone HCl (Oxycodone) 5 mg PO Q4H PRN PRN Reason: Chest Pain Last Admin: 11/25/18 20:26 Dose: 5 mg Polyethylene Glycol (Miralax) 17 gm PO DAILY PRN PRN Reason: Constipation Senna/Docusate Sodium (Senna Plus) 1 tab PO BID PRN PRN Reason: Constipation Last Admin: 11/25/18 19:22 Dose: 1 tab Sertraline HCl (Zoloft) 100 mg PO DAILY [facility] Last Admin: 11/26/18 10:13 Dose: 100 mg Sodium Chloride (Saline Flush) 10 ml FLUSH ASDIRECTED PRN PRN Reason: Keep Vein Open Trospium (Sanctura) 20 mg PO BID [facility] Last Admin: 11/26/18 09:06 Dose: 20 mg Discontinued Medications Enoxaparin Sodium (Lovenox) 40 mg SUBCUT DAILY [facility] Last Admin: 11/22/18 22:41 Dose: 40 mg Hydromorphone HCl (Dilaudid) 0.5 mg IVPUSH ONETIME ONE Stop: 11/22/18 17:24 Last Admin: 11/22/18 17:30 Dose: 0.5 mg Hydromorphone HCl (Dilaudid) 0.5 mg IVPUSH ONETIME ONE Stop: 11/22/18 19:29 Last Admin: 11/22/18 19:51 Dose: 0.5 mg Sodium Chloride (Normal Saline) 1,000 mls @ 999 mls/hr IV ASDIRECTED [facility] Last Admin: 11/22/18 17:32 Dose: 999 mls/hr Azithromycin 500 mg/ Sodium (Chloride) 250 mls @ 250 mls/hr IV ONETIME ONE Stop: 11/22/18 20:27 Last Admin: 11/22/18 20:33 Dose: 250 mls/hr Ceftriaxone Sodium 1 gm/ (Sodium Chloride) 50 mls @ 100 mls/hr IV ONETIME ONE Stop: 11/22/18 19:56 Last Admin: 11/22/18 19:52 Dose: 100 mls/hr Sodium Chloride (Normal Saline) 1,000 mls @ 125 mls/hr IV ASDIRECTED [facility] Last Admin: 11/23/18 08:35 Dose: 125 mls/hr Sodium Chloride (Normal Saline) 500 mls @ 500 mls/hr IV BOLUS ONE Stop: 11/23/18 01:59 Last Admin: 11/23/18 01:13 Dose: 500 mls/hr Sodium Chloride (Normal Saline) 500 mls @ 250 mls/hr IV BOLUS ONE Stop: 11/23/18 03:59 Last Admin: 11/23/18 02:00 Dose: 250 mls/hr Lactated Ringer's (Ringers, Lactated) 1,000 mls @ 50 mls/hr IV ASDIRECTED [facility] Last Admin: 11/23/18 12:10 Dose: 50 mls/hr Ondansetron HCl (Zofran) 4 mg IVPUSH ONETIME ONE Stop: 11/22/18 17:23 Last Admin: 11/22/18 17:31 Dose: 4 mg Sodium Chloride (Saline Flush) 10 ml FLUSH ASDIRECTED PRN PRN Reason: Keep Vein Open Last Admin: 11/22/18 17:33 Dose: 10 ml - Exam Quality Assessment: Reports: DVT Prophylaxis General: Reports: Alert, Oriented, Cooperative, Mild Distress Lungs: Reports: Rhonchi. Denies: Rales, Rub, Stridor, Wheezing Cardiovascular: Reports: Regular Rate, Regular Rhythm, No Murmurs GI/Abdominal Exam: Soft, Non-Tender, No Organomegaly, No Distention Extremities: Non-Tender, No Pedal Edema
[2018-11-26 10:36] VITALS: BP 120/62; PULSE 84
== END 2018-11-26 13:38 | DRG 195 ==
LOC: JP.ED 16:43 → JP.ICU 20:12 → JP.MS 11-24 14:12
PROVIDERS: ADMIT Hospitalist; ATTEND Hospitalist
DX: J18.1 Lobar pneumonia, unspecified organism (principal); R11.0 Nausea; R07.9 Chest pain, unspecified; H54.7 Unspecified visual loss; I10 Essential (primary) hypertension; F41.9 Anxiety disorder, unspecified; Z91.048 Other nonmedicinal substance allergy status; Z79.890 Hormone replacement therapy; Z79.899 Other long term (current) drug therapy; H40.9 Unspecified glaucoma; F32.9 Major depressive disorder, single episode, unspecified; Z86.718 Personal history of other venous thrombosis and embolism; E03.9 Hypothyroidism, unspecified; R32 Unspecified urinary incontinence; Z87.440 Personal history of urinary (tract) infections; R42 Dizziness and giddiness; E66.9 Obesity, unspecified; I95.89 Other hypotension; Z87.891 Personal history of nicotine dependence; Z88.2 Allergy status to sulfonamides; D50.9 Iron deficiency anemia, unspecified; Z98.84 Bariatric surgery status; Z98.49 Cataract extraction status, unspecified eye; R09.02 Hypoxemia; D72.829 Elevated white blood cell count, unspecified; R79.82 Elevated C-reactive protein (CRP); M94.0 Chondrocostal junction syndrome [Tietze]; K43.9 Ventral hernia without obstruction or gangrene; Z90.49 Acquired absence of other specified parts of digestive tract; Z90.710 Acquired absence of both cervix and uterus; Z91.041 Radiographic dye allergy status; Z68.36 Body mass index [BMI] 36.0-36.9, adult
CPT/HCPCS: 36415; 71250; 74176; 80053; 81001; 83690; 84484; 85025; 86140; 93005; 93010; 96361; 96365; 96375; 96376; 99285; J0696; J1170 ×2; J2405; J7030; J7050; 80048; 84443; 87040; 87070; 87205; 94640; 94762; 99284; A9270-GY; J0456; J1650; J7120

== ENCOUNTER 2019-04-05 09:40 | Inpatient (IN) | payer MEDICARE ==
[2019-04-05] MEDS ORDERED: Ropivacaine 44 ML, dexAMETHasone 8 MG, EPINEPHrine 0.4 MG, Sodium Chloride 0.9% 33.6 ML NERVRT SCH ×4 (10:00)
[2019-04-05] MEDS ORDERED: Acetaminophen 500 MG Tab PO ONE (10:15)
[2019-04-05] MEDS ORDERED: Dextrose 5%-Lactated Ringers 1,000 ML IV SCH (10:30)
[2019-04-05] MEDS ORDERED: Meropenem 500 MG SDV ONE (11:02)
[2019-04-05] MEDS ORDERED: fentaNYL 250 MCG/5 ML SDV ONE ×2 (11:19→13:33)
[2019-04-05] MEDS ORDERED: Dexamethasone 4 MG/ML SDV ONE (11:20)
[2019-04-05] MEDS ORDERED: Glycopyrrolate 0.2 MG/ML 5 ML MDV ONE (11:20)
[2019-04-05] MEDS ORDERED: Propofol 200 MG/20 ML SDV ONE (11:20)
[2019-04-05] MEDS ORDERED: Neostigmine Methylsulfate 1 MG/ML 5 ML Syringe ONE (11:20)
[2019-04-05] MEDS ORDERED: Rocuronium 50 MG/5 ML Vial ONE (11:20)
[2019-04-05] MEDS ORDERED: Ondansetron 4 MG/2 ML SDV ONE (11:20)
[2019-04-05] MEDS ORDERED: ceFAZolin 2 GM in Premix Bag 1 BAG IV ONE (11:30)
[2019-04-05] MEDS ORDERED: Lactated Ringers 1,000 ML ONE (13:06)
[2019-04-05] MEDS: Mupirocin Oint 22 GM Tube ONE ×2 (14:06→14:44)
[2019-04-05] MEDS ORDERED: fentaNYL 100 MCG/2 ML SDV IVPUSH ONE (15:00)
[2019-04-05] MEDS ORDERED: hydrOXYzine HCL 100 MG/2 ML SDV IM ONE (15:00)
[2019-04-05] MEDS ORDERED: Ondansetron 4 MG/2 ML SDV IVPUSH PRN (16:03)
[2019-04-05] MEDS ORDERED: HYDROmorphone 0.5 MG/0.5 ML Syringe IVPUSH PRN (16:03)
[2019-04-05] MEDS ORDERED: HYDROmorphone 1 MG/ML Syringe IV PRN (16:03)
[2019-04-05] MEDS ORDERED: Furosemide 20 MG Tab PO PRN (16:06)
[2019-04-05] MEDS ORDERED: ALPRAZolam 0.25 MG Tab PO PRN (16:08)
[2019-04-05] MEDS: Acetaminophen 325 MG Tab PO SCH ×2 (17:16→23:42)
[2019-04-05] MEDS: Pantoprazole 40 MG Vial IVPUSH SCH (17:16)
[2019-04-05] MEDS: ceFAZolin 2 GM in Premix Bag 1 BAG IV SCH (17:16)
[2019-04-05] MEDS: oxyCODONE 5 MG Tab PO PRN ×2 (17:17→21:24)
[2019-04-05] MEDS: Dextrose 5%-Lactated Ringers 1,000 ML IV SCH ×2 (17:53→23:48)
[2019-04-05] MEDS: Tolterodine 2 MG Tab PO SCH (21:25)
[2019-04-05] MEDS: Sertraline 50 MG Tab PO SCH (21:25)
[2019-04-05] MEDS: Doxycycline 100 MG Cap PO SCH (21:25)
[2019-04-05] MEDS: amLODIPine 10 MG Tab PO SCH ×2 (21:26→21:36)
[2019-04-05] MEDS: Latanoprost 0.005% Ophth Soln 2.5 ML Bottle EYELF SCH (21:29)
[2019-04-06] MEDS ORDERED: Calcium Carbonate 500 MG Tab.Chew PO PRN (01:59)
[2019-04-06] MEDS: ceFAZolin 2 GM in Premix Bag 1 BAG IV SCH ×2 (02:09→09:12)
[2019-04-06] MEDS: Acetaminophen 325 MG Tab PO SCH ×3 (06:26→17:01)
[2019-04-06] MEDS: oxyCODONE 5 MG Tab PO PRN ×2 (09:01→19:59)
[2019-04-06] MEDS: Dextrose 5%-Lactated Ringers 1,000 ML IV SCH ×2 (09:03→17:06)
[2019-04-06] MEDS: Levothyroxine 100 MCG Tab PO SCH (09:06)
[2019-04-06] MEDS: Losartan 50 MG Tab PO SCH (09:07)
[2019-04-06] MEDS: amLODIPine 10 MG Tab PO SCH ×2 (09:08→21:18)
[2019-04-06] MEDS: Tolterodine 2 MG Tab PO SCH ×2 (09:08→21:15)
[2019-04-06] MEDS: Sertraline 50 MG Tab PO SCH ×2 (09:10→21:14)
[2019-04-06] MEDS: Doxycycline 100 MG Cap PO SCH ×2 (09:10→21:16)
[2019-04-06] MEDS: Docusate Sodium 100 MG Cap PO SCH ×2 (09:11→21:17)
--- NOTE | 2019-04-06 11:16 | PN ---
DATE OF SERVICE: 04/06/2019 SUBJECTIVE: Debra is postoperative day #1. She states her pain is controlled. Vital signs have been stable. She has been up ambulating. She had concerns of having a bowel movement. States she is chronically constipated. REVIEW OF SYSTEMS: Remainder of review of systems negative for any pertinent positives and negatives. OBJECTIVE: GENERAL: Debra Martínez is an 83-year-old female. She is alert and orientated. VITAL SIGNS: TPR 97.6, 69, 16, blood pressure 109/49. HEENT: Negative. NECK: Supple. HEART: Regular rate and rhythm. LUNGS: Clear. ABDOMEN: Dressings dry and intact. She has 4 JENNY drains and they have drained 5, 35, 5, and 10 respectively. EXTREMITIES: SCDs are on and there is no peripheral edema. ASSESSMENT: 1. Panniculectomy. 2. Exploratory laparotomy with repair of incarcerated recurrent incisional hernia and incarcerated umbilical hernia with mesh and placement of Vicryl mesh for incarcerated recurrent incisional hernia, incarcerated umbilical hernia, chronic panniculitis, and extensive intraabdominal adhesions. Date of surgery: 04/05/2019. PLAN: 1. Discontinue Villasenor catheter. 2. Step 4 gastric bypass diet. 3. Colace 100 mg p.o. b.i.d. 4. Senna Plus 2 tablets p.o. b.i.d. 5. Decrease IV LR to 100 mL per hour. 6. Good pulmonary toilet. 7. We will evaluate p.r.n. or in a.m. Alicia Hernandez PA-C /[id number]
[2019-04-06] MEDS: Pantoprazole 40 MG Vial IVPUSH SCH (17:04)
[2019-04-06] MEDS: Latanoprost 0.005% Ophth Soln 2.5 ML Bottle EYELF SCH (21:15)
[2019-04-07] MEDS: Acetaminophen 325 MG Tab PO SCH ×5 (01:45→23:24)
[2019-04-07] MEDS: Dextrose 5%-Lactated Ringers 1,000 ML IV SCH (03:46)
[2019-04-07] MEDS: Doxycycline 100 MG Cap PO SCH ×2 (08:25→20:59)
[2019-04-07] MEDS: Levothyroxine 100 MCG Tab PO SCH (08:26)
[2019-04-07] MEDS: Sertraline 50 MG Tab PO SCH ×2 (08:26→21:00)
[2019-04-07] MEDS: amLODIPine 10 MG Tab PO SCH ×2 (08:26→20:57)
[2019-04-07] MEDS: Docusate Sodium 100 MG Cap PO SCH ×2 (08:26→20:57)
[2019-04-07] MEDS: Tolterodine 2 MG Tab PO SCH ×2 (08:26→20:57)
[2019-04-07] MEDS: Losartan 50 MG Tab PO SCH (08:27)
--- NOTE | 2019-04-07 10:16 | PN ---
DATE OF SERVICE: 04/07/2019 SUBJECTIVE: Debra is postoperative day #2. She reports her pain is controlled. Oral intake 2100, output 3000. JENNY drains have put out 25, 25, 10, and 10 of a light red drainage respectively. REVIEW OF SYSTEMS: Remainder of review of systems negative for any pertinent positives and negatives. OBJECTIVE: GENERAL: Debra Martínez is an 83-year-old female, alert and orientated. VITAL SIGNS: TPR from 0300 is 97.3, 83, 16, blood pressure 129/62. HEENT: Negative. NECK: Supple. HEART: Regular rate and rhythm. LUNGS: Clear. ABDOMEN: Dressing was taken down. Jimmy intact. She has 2 areas from the skin folding over remains to be tender but healing, 1 in the center and the other 1 toward the left lower area. They are more exposed because pannus has been removed. JENNY drains are intact as above. EXTREMITIES: Without peripheral edema. ASSESSMENT: 1. Panniculectomy. 2. Exploratory laparotomy with repair of incarcerated recurrent incisional hernia and incarcerated umbilical hernia with mesh and placement of Vicryl mesh for incarcerated recurrent incisional hernia, incarcerated umbilical hernia, chronic panniculitis and extensive intraabdominal adhesions. Date of surgery: 04/05/2019. PLAN: 1. Discontinue IV and IV medications. 2. Dressing off. 3. May shower. 4. Teach JENNY drain care to strip, empty, measure, and record JENNY drains 4 times a day. 5. Consult discharge planning for home health care. 6. We will evaluate p.r.n. or in a.m. 7. Plan discharge on 04/09/2019. Alicia Hernandez PA-C /[id number]
[2019-04-07] MEDS: Pantoprazole 40 MG Tab.CR PO SCH (20:58)
[2019-04-07] MEDS: Latanoprost 0.005% Ophth Soln 2.5 ML Bottle EYELF SCH (20:59)
[2019-04-08] MEDS: Acetaminophen 325 MG Tab PO SCH ×4 (05:30→23:04)
[2019-04-08] MEDS ORDERED: guaiFENesin 600 MG Tab.ER PO PRN (07:47)
[2019-04-08] MEDS: Levothyroxine 100 MCG Tab PO SCH (09:16)
[2019-04-08] MEDS: amLODIPine 10 MG Tab PO SCH ×2 (09:16→20:21)
[2019-04-08] MEDS: Docusate Sodium 100 MG Cap PO SCH ×2 (09:16→20:21)
[2019-04-08] MEDS: Tolterodine 2 MG Tab PO SCH ×2 (09:17→20:21)
[2019-04-08] MEDS: Doxycycline 100 MG Cap PO SCH ×2 (09:17→20:21)
[2019-04-08] MEDS: Sertraline 50 MG Tab PO SCH ×2 (09:18→20:20)
[2019-04-08] MEDS: Losartan 50 MG Tab PO SCH (09:18)
--- NOTE | 2019-04-08 15:10 | PN ---
DATE OF SERVICE: 04/08/2019 SUBJECTIVE: Kalyn reports she is not having any pain with the exception of in the crease for her pannus was there is an elongated pink rash where the skin is quite irritated. It is quite irritated and starting to blister. She reports that area stings when ingram on the clothing rubs on it. Otherwise, she has been up ambulating. Vital signs have been stable. Oral intake 1600, urine output 2450, JENNY drains have put out 540, 20 and 30 respectively. She has been doing her own JENNY drain care, using incentive spirometer. REVIEW OF SYSTEMS: Remainder of review of systems negative for any pertinent positives or negatives. OBJECTIVE: GENERAL: Kalyn Martínez is a pleasant 83-year-old female. She is alert and orientated. VITAL SIGNS: TPR 97.3, 71, 16. Blood pressure 143/82. HEENT: Negative. NECK: Supple. HEART: Regular rate and rhythm. LUNGS: Clear. ABDOMEN: There is about a 3 inch x 1/2 inch light pink blistered area lower mid abdomen. Jimmy are intact. JENNY drains as above. Abdominal binder has been on. EXTREMITIES: Without peripheral edema. ASSESSMENT: 1. Panniculectomy. 2. Exploratory laparotomy with repair of incarcerated recurrent incisional hernia and incarcerated umbilical hernia with mesh and placement of Vicryl mesh for incarcerated recurrent incisional hernia, incarcerated umbilical hernia, chronic panniculitis and extensive intraabdominal adhesions. Date of surgery: 04/05/2019. PLAN: 1. Continue same bowel stimulation use. 2. Will check on [employer] or [employer] insurance coverage or start a prior authorization. 3. Over area of blistered rash, lower mid abdomen, place Tegaderm or Border Lite over that area to protect from skin rubbing on clothing. 4. Continue good pulmonary toilet. We will evaluate p.r.n. or in a.m. Alicia Hernandez PA-C /[id number]
[2019-04-08] MEDS: Pantoprazole 40 MG Tab.CR PO SCH (20:20)
[2019-04-08] MEDS: Latanoprost 0.005% Ophth Soln 2.5 ML Bottle EYELF SCH (20:20)
[2019-04-08] MEDS: Magnesium Hydroxide 400 MG/5 ML Susp 30 ML Cup PO PRN (21:26)
[2019-04-09] MEDS: Acetaminophen 325 MG Tab PO SCH ×2 (05:24→11:20)
[2019-04-09] MEDS: Levothyroxine 100 MCG Tab PO SCH (07:29)
[2019-04-09 07:36] VITALS: PULSE 68
[2019-04-09] MEDS ORDERED: Mupirocin Oint 22 GM Tube TOP SCH (09:00)
[2019-04-09] MEDS: Docusate Sodium 100 MG Cap PO SCH (09:02)
[2019-04-09] MEDS: Tolterodine 2 MG Tab PO SCH (09:03)
[2019-04-09] MEDS: Magnesium Hydroxide 400 MG/5 ML Susp 30 ML Cup PO PRN (09:04)
[2019-04-09] MEDS: Doxycycline 100 MG Cap PO SCH (09:04)
[2019-04-09] MEDS: Sertraline 50 MG Tab PO SCH (09:04)
[2019-04-09] MEDS: amLODIPine 10 MG Tab PO SCH (09:05)
[2019-04-09] MEDS: Losartan 50 MG Tab PO SCH (09:05)
[2019-04-09 09:09] VITALS: BP 157/87
--- NOTE | 2019-04-10 14:15 | DISCH ---
FINAL DIAGNOSES: 1. Incarcerated recurrent incisional hernia. 2. Incarcerated umbilical hernia. 3. Chronic panniculitis. 4. Extensive intraabdominal adhesions. 5. Bariatric surgery status. 6. Stress urinary incontinence. 7. Depression. 8. Treated hypothyroidism. 9. Iron-deficiency anemia. OPERATIVE PROCEDURES: This was done on 04/05/2019: 1. Panniculectomy. 2. Exploratory laparotomy with repair of incarcerated recurrent incisional hernia and incarcerated umbilical hernias with mesh and placement of Vicryl mesh. SUMMARY: This is an 83-year-old female presenting with large chronically inflamed pannus along with a large incisional hernia. These were repaired per the procedures outlined above on the date of admission. Postoperatively, she has done well, not moving her bowels as of yet, but is passing some gas. She will be sent home with Senna Plus 2 tablets daily along with some doses of milk of magnesia. She does have chronic constipation, and prescription for Amitiza will be discussed at the followup appointment after it is determined what other side effects the patient would have with that medication. Otherwise, she will be following up with Alicia Hernandez in [facility] [place] on 04/15/2019.
--- NOTE | 2019-04-11 07:10 | OR ---
DATE OF PROCEDURE: 04/05/2019 SURGEON: Carl Brown MD PREOPERATIVE DIAGNOSES: 1. Recurrent incisional hernia. 2. Chronic panniculitis. POSTOPERATIVE DIAGNOSES: 1. Incarcerated recurrent incisional hernia. 2. Incarcerated umbilical hernia. 3. Chronic panniculitis. 4. Extensive intraabdominal adhesions. OPERATIVE PROCEDURES: 1. Panniculectomy (74590). 2. Exploratory laparotomy with repair of: a. Incarcerated recurrent incisional hernia with mesh (43825, [id number]). b. Repair of incarcerated umbilical hernia ([id number]). c. Placement of Vicryl mesh to limit recurrent adhesion formation between pelvic and abdominal wall and underlying viscera ([id number]). ANESTHESIA: General. INFORMATION TECHNOLOGY ASSOCIATE: Alicia Hernandez PA-C. INDICATIONS FOR PROCEDURE: This is an 83-year-old female presenting with an enlarging incisional hernia in her upper midline incision. This was associated with quite significant chronic panniculitis with the patient having been status post previous Danica-en-Y gastric bypass and now having a large dependent pannus. After preoperative evaluation and discussion, she wished to proceed with panniculectomy along with repair of the incisional hernia with mesh. Potential risks including bleeding, infection, problems with the hernia recurring or the mesh becoming infected as well as the remote possibility of cardiopulmonary, septic, or hemorrhagic complications leading to were all discussed and the patient wishes to proceed. DETAILS OF PROCEDURE: The patient was taken to the operating room and placed in a supine position after general endotracheal anesthesia was induced. A Villasenor catheter was inserted and the abdomen prepped and draped. Initially, a wide elliptical incision was made across the lower abdomen, carried down through the skin and subcutaneous tissue, and the skin at each site, and this was reflected away from the fascia with a Sonicision device. As one approached the midline, the patient was noted to have the incarcerated incisional hernia as well as an incarcerated umbilical hernia. The incisional hernia had been repaired once earlier and was therefore a recurrent hernia. The portion of the sac was then excised with the pannus. Both the umbilical and incisional hernias were excised flush with the underlying fascia and the specimen then delivered from the field. The removed pannus weighed 6 pounds 14 ounces. With the hernia now being opened, some adhesions were then taken down to allow placement of the mesh. A 17 x 23 cm segment of [address] ST mesh was then selected. This was then marked out such with roughly 5 cm intervals around the circumference. Some 2-0 Vicryl sutures were placed on the polypropylene side of the mesh. The mesh was then soaked in antibiotic- containing saline solution and stab wounds were then placed in the abdominal wall where the sutures and the mesh would be pulled up, thus fixing it into position well away from the edges of the fascial defect. Once half of these were in place, then Vicryl mesh was then placed underneath the area of the mesh and from there down toward the pelvic sidewall so as to limit recurrent adhesion formation between the pelvic and abdominal wall and the underlying viscera. The mesh was then placed into the peritoneal cavity and the other half of the sutures were pulled up. The mesh was then additionally fixed to the abdominal wall with tacking screws placed on the underlying shelf of the mesh. At this point, no further problems were noted. The primary fascial closure was accomplished with a #2 Vicryl stitch. This was a transversely-oriented closure. Four Ambrocio-Mak drains were then placed through stab wound superior to the primary incision which was then closed with 3-0 and 4-0 Vicryl stitch deep and prabhakar for the skin. Drains were fixed with some 4-0 Vicryl stitch. The patient was taken to the recovery room in satisfactory condition. There were no evident complications. Physician assistant signal maintainer, Alicia Hernandez, played an essential role in assisting in this case, helping to position the patient, retract structures as needed, as well as suturing and cutting sutures when indicated. Her presence improved patient safety and decreased the operative time. Carl Brown MD /[id number]
== END 2019-04-09 13:22 | disposition home or self-care (01) | DRG 355 ==
LOC: JP.SDS 09:40 → JP.MS 09:40 → EDSTATUS 10:15 → JP.2SS 14:00 → JP.MS 04-07 13:04
PROVIDERS: ADMIT Surgery; ATTEND Surgery
PROC: 0WUF0JZ Supplement Abdominal Wall with Synthetic Substitute, Open Approach (ICD-10-PCS; principal; 2019-04-05)
PROC: 0JB80ZZ Excision of Abdomen Subcutaneous Tissue and Fascia, Open Approach (ICD-10-PCS; 2019-04-05)
PROC: 0WQF0ZZ Repair Abdominal Wall, Open Approach (ICD-10-PCS; 2019-04-05)
PROC: 3E0M05Z Introduction of Adhesion Barrier into Peritoneal Cavity, Open Approach (ICD-10-PCS; 2019-04-05)
DX: K43.0 Incisional hernia with obstruction, without gangrene (principal); K42.0 Umbilical hernia with obstruction, without gangrene; M79.3 Panniculitis, unspecified; K66.0 Peritoneal adhesions (postprocedural) (postinfection); R32 Unspecified urinary incontinence; F32.9 Major depressive disorder, single episode, unspecified; E03.9 Hypothyroidism, unspecified; D50.9 Iron deficiency anemia, unspecified; K21.9 Gastro-esophageal reflux disease without esophagitis; G89.29 Other chronic pain; M54.9 Dorsalgia, unspecified; F41.9 Anxiety disorder, unspecified; E53.8 Deficiency of other specified B group vitamins; I10 Essential (primary) hypertension; Z79.890 Hormone replacement therapy; Z79.899 Other long term (current) drug therapy; Z98.84 Bariatric surgery status; Z88.2 Allergy status to sulfonamides; Z91.09 Other allergy status, other than to drugs and biological substances
CPT/HCPCS: 88302; 88305; 94762; A9270-GY; C1713; C1781; C9113; J0171; J0690; J1100; J1170; J2020; J2185; J2405; J2704; J2710; J2795; J3010; J3410; J3490; J7050; J7120; J7121

== ENCOUNTER 2020-12-22 13:24 | Emergency (ER) | payer MEDICARE ==
[2020-12-22] MEDS ORDERED: Ondansetron 4 MG Tab.DIS PO ONE (16:00)
--- NOTE | 2020-12-22 16:03 | EDM.PDOC ---
<OfficerJaswinder - Last Filed: 12/22/20 16:01> ED HPI GENERAL MEDICAL PROBLEM - General Chief Complaint: Genitourinary Problem Stated Complaint: KIDNEY INFECTION?? Time Seen by Provider: 12/22/20 15:57 Source of Information: Reports: Patient, Family, RN Notes Reviewed History Limitations: Reports: No Limitations - History of Present Illness INITIAL COMMENTS - FREE TEXT/NARRATIVE: 85-year-old female presents emergency department today with increasing back pain, she was recently diagnosed with a urinary tract infection started on Macrobid. She is taken 1 day of that medication but this morning she woke up she was having aching feeling and then costophrenic angle area on the left side she has had urinary tract infections in the past. No fevers but she has had chills with nausea no vomiting - Related Data Allergies Allergy/AdvReac Type Severity Reaction Status Date / Time Iodinated Contrast Media Allergy Rash Verified 12/22/20 15:22 Sulfa (Sulfonamide Allergy Rash Verified 12/22/20 15:22 Antibiotics) Dust mite extract Allergy Sneezing Uncoded 12/22/20 15:22 Home Meds: Home Meds Cholecalciferol (Vitamin D3) [Vitamin D3] 3,000 units PO DAILY 06/17/16 [History] Cyanocobalamin (Vitamin B12) [Vitamin B12] 1,000 mcg IJ [id number] 06/17/16 [History] Iron-Vitamin C 65 - 125 mg PO DAILY 06/17/16 [History] Latanoprost 1 drop EYELF DAILY 06/17/16 [History] Levothyroxine [Synthroid] 100 mcg PO DAILY 06/17/16 [History] Losartan Potassium [Cozaar] 100 mg PO DAILY 06/17/16 [History] Meclizine [Antivert] 25 mg PO Q6H PRN 06/17/16 [History] Sertraline [Zoloft] 100 mg PO BID 06/17/16 [History] amLODIPine [Norvasc] 10 mg PO BID 06/17/16 [History] ALPRAZolam [Xanax] 0.25 mg PO TID PRN 04/01/19 [History] Betamethasone/Clotrimazole [Lotrisone] 15 gm TOP BID PRN 04/01/19 [History] Calcium Carbonate/Vitamin D3 [Calcium 600 + D3 Softgel] 1 each PO DAILY 04/01/19 [History] Furosemide [Lasix] 20 mg PO DAILY PRN 04/01/19 [History] Multivitamin with Minerals [Multiple Vitamin] 1 tab PO DAILY 04/01/19 [History] Pimecrolimus [Elidel] 1 applic TOP BID 04/01/19 [History] Triamcinolone Acetonide [Kenalog 0.1% Crm] 1 applic TOP TID PRN 04/01/19 [History] Metoprolol Succinate [Toprol XL] 25 mg PO BID 12/22/20 [History] nitrofurantoin macrocrystaL [Nitrofurantoin] 100 mg PO BID 12/22/20 [History] Past Medical History HEENT History: Reports: Cataract, Glaucoma, Impaired Vision Cardiovascular History: Reports: Blood Clots/VTE/DVT, Hypertension, Other (See Below) Other Cardiovascular History: carotid artery blockage Respiratory History: Reports: Other (See Below) Other Respiratory History: 2019 current pneumonia Gastrointestinal History: Reports: Cholelithiasis, Chronic Constipation Other Gastrointestinal History: right sided abdominal hernia Genitourinary History: Reports: Urinary Incontinence, UTI, Recurrent, Other (See Below) 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: , 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, 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 Musculoskeletal History: Reports: Fracture Other Musculoskeletal History: upper arm Neurological History: Reports: Vertigo Psychiatric History: Reports: Anxiety, Depression, Panic Attack Endocrine/Metabolic History: Reports: Hypothyroidism, Obesity/BMI 30+, Other (See Below) Other Endocrine/Metabolic History: hypoglycemic Hematologic History: Reports: Anemia, B12 Deficiency, Iron Deficiency Dermatologic History: Reports: Cellulitis - Infectious Disease History Infectious Disease History: Reports: Chicken Pox, Influenza, Measles, Meningitis, Shingles - Past Surgical History Head Surgeries/Procedures: Reports: None HEENT Surgical History: Reports: Cataract Surgery Cardiovascular Surgical History: Reports: None Respiratory Surgical History: Reports: None GI Surgical History: Reports: Appendectomy, Bariatric Procedure, Cholecystectomy, Colonoscopy, Other (See Below) Other GI Surgeries/Procedures: rny revision Female Surgical History: Reports: Hysterectomy Endocrine Surgical History: Reports: None Neurological Surgical History: Reports: None Musculoskeletal Surgical History: Reports: Carpal Tunnel Dermatological Surgical History: Reports: None Social & Family History - Tobacco Use Tobacco Use Status *Q: Never Tobacco User Second Hand Smoke Exposure: No - Caffeine Use Caffeine Use: Reports: Coffee - Recreational Drug Use Recreational Drug Use: No ED ROS GENERAL - Review of Systems Review Of Systems: See Below Constitutional: Reports: Chills. Denies: Fever HEENT: Reports: No Symptoms Respiratory: Reports: No Symptoms Cardiovascular: Reports: No Symptoms GI/Abdominal: Reports: Nausea. Denies: Vomiting : Reports: Flank Pain ED EXAM, RENAL/ - Physical Exam Exam: See Below Exam Limited By: No Limitations General Appearance: Alert, WD/WN, No Apparent Distress Respiratory/Chest: No Respiratory Distress, Lungs Clear, Normal Breath Sounds, No Accessory Muscle Use, Chest Non-Tender Cardiovascular: Regular Rate, Rhythm, No Murmur GI/Abdominal: Soft, Non-Tender Back Exam: Normal Inspection, Full Range of Motion, CVA Tenderness (L). No: CVA Tenderness (R) Departure - Departure Disposition: Home, Self-Care 01 Clinical Impression: Elevated liver function tests Medication adverse effect Qualifiers: Encounter type: initial encounter Qualified Code(s): T50.905A - Adverse effect of unspecified drugs, medicaments and biological substances, initial encounter - Discharge Information Referrals: Nemesio Taveras MD [Primary Care Provider] - Forms: ED Department Discharge Additional Instructions: Stop the nitrofurantoin. Recheck in the clinic on Thursday or Thursday. Return if worse. <Mason Monreal - Last Filed: 12/22/20 19:37> ED HPI GENERAL MEDICAL PROBLEM - History of Present Illness INITIAL COMMENTS - FREE TEXT/NARRATIVE: Denies ETOH or IV drug use. Has had loose stools for a couple yrs, not worse recently. No fevers. Course - Vital Signs Text/Narrative:: Dr. Newsome called @ 1920h Last Recorded V/S: Last Vital Signs Temp 37.2 C 12/22/20 15:31 Pulse 78 12/22/20 18:35 Resp 17 12/22/20 15:31 BP 104/37 L 12/22/20 18:35 Pulse Ox 96 12/22/20 15:31 - Orders/Labs/Meds Orders: Active Orders 24 hr Category Date Time Status Peripheral IV Care [RC] . DIRECTED Care 12/22/20 17:19 Active Sodium Chloride 0.9% [Normal Saline] 1,000 ml Med 12/22/20 17:30 Active IV ASDIRECTED Sodium Chloride 0.9% [Saline Flush] Med 12/22/20 17:18 Active 10 ml FLUSH ASDIRECTED PRN Peripheral IV Insertion Adult [OM.PC] Urgent Oth 12/22/20 17:18 Ordered Medication Orders Sodium Chloride (Normal Saline) 1,000 mls @ 500 mls/hr IV ASDIRECTED LIBAN Last Admin: 12/22/20 17:27 Dose: 500 mls/hr Documented by: FRANSICO Sodium Chloride (Sodium Chloride 0.9% 10 Ml Syringe) 10 ml FLUSH ASDIRECTED PRN PRN Reason: Keep Vein Open Last Admin: 12/22/20 17:27 Dose: 10 ml Documented by: FRANSICO Labs: Laboratory Tests 12/22/20 12/22/20 12/22/20 Range/Units 14:55 16:14 16:14 WBC 15.0 H (4.5-11.0) K/uL RBC 4.35 (3.30-5.50) M/uL Hgb 12.5 (12.0-15.0) g/dL Hct 37.2 (36.0-48.0) % MCV 86 (80-98) fL MCH 29 (27-31) pg MCHC 34 (32-36) % Plt Count 306 (150-400) K/uL Neut % (Auto) 88.2 H (36-66) % Lymph % (Auto) 4.5 L (24-44) % [place] % (Auto) 6.7 H (2-6) % Eos % (Auto) 0.5 L (2-4) % Baso % (Auto) 0.1 (0-1) % Sodium 133 L (140-148) mmol/L Potassium 4.0 (3.6-5.2) mmol/L Chloride 97 L (100-108) mmol/L Carbon Dioxide 26 (21-32) mmol/L Anion Gap 14.0 (5.0-14.0) mmol/L BUN 23 H D (7-18) mg/dL Creatinine 0.8 (0.6-1.0) mg/dL Est Cr Clr Drug Dosing 38.80 mL/min Estimated GFR (MDRD) > 60 (>60) Glucose 122 H (74-106) mg/dL POC Glucose (74-106) mg/dL Lactic Acid (0.4-2.0) mmol/L Calcium 8.7 (8.5-10.1) mg/dL Total Bilirubin 1.5 H D (0.2-1.0) mg/dL AST 1812 H (15-37) U/L ALT 1167 H (12-78) U/L Alkaline Phosphatase 326 H D (46-116) U/L C-Reactive Protein 3.91 H (0.0-0.3) mg/dL Total Protein 6.6 (6.4-8.2) g/dL Albumin 3.0 L (3.4-5.0) g/dL Globulin 3.6 H (2.3-3.5) g/dL Albumin/Globulin Ratio 0.8 L (1.2-2.2) Urine Color Yellow (YELLOW) Urine Appearance Turbid A (CLEAR) Urine pH 6.0 (5.0-8.0) Ur Specific [place] 1.015 (1.008-1.030) Urine Protein Trace H (NEGATIVE) mg/dL Urine Glucose (UA) Negative (NEGATIVE) mg/dL Urine Ketones Negative (NEGATIVE) mg/dL Urine Occult Blood Small H (NEGATIVE) Urine Nitrite Negative (NEGATIVE) Urine Bilirubin Negative (NEGATIVE) Urine Urobilinogen 0.2 (0.2-1.0) EU/dL Ur Leukocyte Esterase Trace H (NEGATIVE) Urine RBC 0-5 (0-5) Urine WBC 0-5 (0-5) Ur Epithelial Cells Few Amorphous Sediment Few Urine Bacteria Many Urine Mucus Rare 12/22/20 12/22/20 Range/Units 16:14 18:44 WBC (4.5-11.0) K/uL RBC (3.30-5.50) M/uL Hgb (12.0-15.0) g/dL Hct (36.0-48.0) % MCV (80-98) fL MCH (27-31) pg MCHC (32-36) % Plt Count (150-400) K/uL Neut % (Auto) (36-66) % Lymph % (Auto) (24-44) % [place] % (Auto) (2-6) % Eos % (Auto) (2-4) % Baso % (Auto) (0-1) % Sodium (140-148) mmol/L Potassium (3.6-5.2) mmol/L Chloride (100-108) mmol/L Carbon Dioxide (21-32) mmol/L Anion Gap (5.0-14.0) mmol/L BUN (7-18) mg/dL Creatinine (0.6-1.0) mg/dL Est Cr Clr Drug Dosing mL/min Estimated GFR (MDRD) (>60) Glucose (74-106) mg/dL POC Glucose 121 H (74-106) mg/dL Lactic Acid 2.1 H (0.4-2.0) mmol/L Calcium (8.5-10.1) mg/dL Total Bilirubin (0.2-1.0) mg/dL AST (15-37) U/L ALT (12-78) U/L Alkaline Phosphatase (46-116) U/L C-Reactive Protein (0.0-0.3) mg/dL Total Protein (6.4-8.2) g/dL Albumin (3.4-5.0) g/dL Globulin (2.3-3.5) g/dL Albumin/Globulin Ratio (1.2-2.2) Urine Color (YELLOW) Urine Appearance (CLEAR) Urine pH (5.0-8.0) Ur Specific [place] (1.008-1.030) Urine Protein (NEGATIVE) mg/dL Urine Glucose (UA) (NEGATIVE) mg/dL Urine Ketones (NEGATIVE) mg/dL Urine Occult Blood (NEGATIVE) Urine Nitrite (NEGATIVE) Urine Bilirubin (NEGATIVE) Urine Urobilinogen (0.2-1.0) EU/dL Ur Leukocyte Esterase (NEGATIVE) Urine RBC (0-5) Urine WBC (0-5) Ur Epithelial Cells Amorphous Sediment Urine Bacteria Urine Mucus Meds: Medications Generic Name Dose Route Start Last Admin Trade Name Freq PRN Reason Stop Dose Admin Sodium Chloride 1,000 mls @ 500 mls/hr 12/22/20 17:30 12/22/20 17:27 Normal Saline IV 500 mls/hr ASDIRECTED LIBAN Administration Sodium Chloride 10 ml 12/22/20 17:18 12/22/20 17:27 Sodium Chloride 0.9% 10 Ml Syringe FLUSH 10 ml ASDIRECTED PRN Administration Keep Vein Open Discontinued Medications Generic Name Dose Route Start Last Admin Trade Name Freq PRN Reason Stop Dose Admin Ondansetron HCl 4 mg 12/22/20 16:00 12/22/20 16:13 Ondansetron 4 Mg Tab.Dis PO 12/22/20 16:01 4 mg ONETIME ONE Administration - Radiology Interpretation Free Text/Narrative:: Abd/pelvis CT scan- IMPRESSION: 1. Nephrolithiasis with [id number] left pelvicaliectasis with transition at the ureteropelvic junction. 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 This is similar to the prior exam. No ureteral stone seen. 2. Status post gastric bypass without evidence of obstruction. Please note that all CT scans at this facility use dose modulation, iterative reconstruction, and/or weight-based dosing when appropriate to reduce radiation dose to as low as reasonably achievable. Dictated by Nael Dubois MD @ 12/22/2020 6:37:47 PM Departure - Departure Time of Disposition: 19:45 Condition: Fair - Discharge Information *PRESCRIPTION DRUG MONITORING PROGRAM REVIEWED*: Not Applicable *COPY OF PRESCRIPTION DRUG MONITORING REPORT IN PATIENT BRENDA: Not Applicable Sepsis Event Note (ED) - Focused Exam Vital Signs: Vital Signs Temp Pulse Resp BP Pulse Ox 12/22/20 18:35 78 104/37 L 12/22/20 17:06 75 105/47 L 12/22/20 16:00 76 107/56 L 12/22/20 15:31 37.2 C 79 17 114/42 L 96 12/22/20 15:23 37.2 C 79 17 114/42 L 96
[2020-12-22] MEDS ORDERED: Sodium Chloride 0.9% 10 ML Syringe FLUSH PRN (17:18)
[2020-12-22] MEDS ORDERED: Sodium Chloride 0.9% 1,000 ML IV SCH (17:30)
[2020-12-22 18:36] VITALS: BP 104/37; PULSE 78
--- NOTE | 2020-12-22 18:39 | CRLCT ---
For Patients: As a result of the Century Cures Act, medical imaging exams and procedure reports are released immediately into your electronic medical record. You may view this report before your referring provider. If you have questions, please contact your health care provider. INDICATION: Left flank pain TECHNIQUE: Axial images were obtained from the diaphragm to the pubic symphysis. Reformats were obtained in the coronal and sagittal plane. IV Contrast: None Oral Contrast: None COMPARISON: Abdomen and pelvis CT 11/22/2018 FINDINGS: Lower chest: Bibasilar discoid atelectasis. Coronary atherosclerosis. Status post gastric bypass. Liver: Unremarkable. Normal in size and attenuation. No masses. Gallbladder and bile ducts: Status post cholecystectomy. Common duct upper normal at 10 millimeters. Spleen: Unremarkable. Normal in size without mass. Pancreas: Moderate pancreatic atrophy. Adrenal glands: Unremarkable. No nodules. Kidneys: Nephrolithiasis with [id number] left pelvocaliectasis with abrupt transition at the ureteropelvic junction. No ureteral stone. Vasculature: Atherosclerosis. GI tract: Status post gastric bypass. Ventral hernia mesh. No dilated loops of large or small intestine. Pelvis: The bladder is unremarkable. Status posthysterectomy. Bones: Degenerative disc disease lumbar spine. IMPRESSION: 1. Nephrolithiasis with [id number] left pelvicaliectasis with transition at the ureteropelvic junction. 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 This is similar to the prior exam. No ureteral stone seen. 2. Status post gastric bypass without evidence of obstruction. Please note that all CT scans at this facility use dose modulation, iterative reconstruction, and/or weight-based dosing when appropriate to reduce radiation dose to as low as reasonably achievable. Dictated by Nael Dubois MD @ 12/22/2020 6:37:47 PM (Electronically Signed)
== END 2020-12-22 19:52 | disposition home or self-care (01) ==
LOC: JP.ED 13:24
DX: R79.89 Other specified abnormal findings of blood chemistry (principal); T37.8X5A Adverse effect of other specified systemic anti-infectives and antiparasitics, initial encounter; I10 Essential (primary) hypertension; E03.9 Hypothyroidism, unspecified; E66.9 Obesity, unspecified; Z79.899 Other long term (current) drug therapy; Z91.041 Radiographic dye allergy status; Z88.2 Allergy status to sulfonamides; Z91.09 Other allergy status, other than to drugs and biological substances; Z68.31 Body mass index [BMI] 31.0-31.9, adult
CPT/HCPCS: 36415; 74176; 80053; 81001; 82947; 83605; 85025; 86140; 99284; A9270; J7030

== ENCOUNTER 2021-01-04 20:52 | Emergency (ER) | payer MEDICARE | END 2021-01-04 22:07 | disposition left against medical advice (07) | LOC: JP.ED 20:52 | DX: Z53.21 Procedure and treatment not carried out due to patient leaving prior to being seen by health care provider (principal) ==

== ENCOUNTER 2022-11-25 10:07 | Emergency (ER) | payer MEDICARE ==
[2022-11-25] MEDS ORDERED: Aspirin 81 MG Tab.Chew PO ONE (10:19)
[2022-11-25] MEDS ORDERED: Alum Hydrox/Mag Hydrox/Simeth 15 ML, Lidocaine 2% 15 ML PO ONE ×2 (10:33)
[2022-11-25 10:34] LABS: BASOPHILS ABSOLUTE AUTO 0.04 K/uL (0.00-0.10); BASOPHILS PERCENT AUTO 0.4 % (0.1-1.3); EOSINOPHILS ABSOLUTE AUTO 0.21 K/uL (0.00-0.40); EOSINOPHILS PERCENT AUTO 2.1 % (0.0-5.4); HEMATOCRIT 39.9 % (34.3-46.0); HEMOGLOBIN 13.4 g/dL (11.2-15.5); IMMATURE GRAN ABSOLUTE AUTO 0.05 K/uL (0.00-0.23); IMMATURE GRAN PERCENT AUTO 0.5 % (0.0-0.7); LYMPHOCYTES ABSOLUTE AUTO 1.76 K/uL (0.8-3.3); LYMPHOCYTES PERCENT AUTO 17.3 % (11.4-47.7); MEAN CORPUSCULAR HEMOGLOBIN 29.5 pg (31.6-35.5); MEAN CORPUSCULAR HGB CONC 33.6 g/dL (31.6-35.5); MEAN CORPUSCULAR VOLUME 87.9 fL (81.4-99.0); MONOCYTES ABSOLUTE AUTO 0.93 K/uL (0.20-0.90); MONOCYTES PERCENT AUTO 9.2 % (3.3-12.6); NEUTROPHILS ABSOLUTE AUTO 7.16 K/uL (1.0-7.6); NEUTROPHILS PERCENT AUTO 70.5 % (40.0-78.1); PLATELET COUNT,PLT 321 K/uL (130-375); RED BLOOD CELL COUNT 4.54 M/uL (3.77-5.24); WHITE BLOOD CELL COUNT,WBC 10.2 K/uL (3.2-11.0)
[2022-11-25] MEDS ORDERED: Pantoprazole 40 MG Tab.CR PO ONE (10:47)
[2022-11-25 10:53] LABS: PROTHROMBIN TIME 9.8 sec (9.2-10.6); PTT,PARTIAL THROMBOPLSTIN TIME 26.1 sec (21.8-27.3)
[2022-11-25 10:58] LABS: ANION GAP 11.2 mmol/L (5.0-14.0); BLOOD UREA NITROGEN,BUN 34 mg/dL (7-18); CALCIUM 8.8 mg/dL (8.5-10.1); CARBON DIOXIDE,CO2 28 mmol/L (21-32); CHLORIDE,CL 101 mmol/L (100-108); CREATININE 0.8 mg/dL (0.6-1.0); ESTIMATED GFR 71 mL/min (>60); GLUCOSE RANDOM 100 mg/dL (74-106); POTASSIUM,K 4.2 mmol/L (3.6-5.2); SODIUM,NA 136 mmol/L (140-148)
[2022-11-25 11:25] VITALS: PULSE 58
[2022-11-25 11:26] VITALS: BP 106/50
== END 2022-11-25 11:42 | disposition home or self-care (01) ==
LOC: JP.ED 10:07
DX: I35.0 Nonrheumatic aortic (valve) stenosis (principal); I10 Essential (primary) hypertension; E03.9 Hypothyroidism, unspecified; E66.9 Obesity, unspecified; Z68.31 Body mass index [BMI] 31.0-31.9, adult; Z79.899 Other long term (current) drug therapy; Z91.041 Radiographic dye allergy status; Z88.2 Allergy status to sulfonamides; Z91.048 Other nonmedicinal substance allergy status
CPT/HCPCS: 36415; 80048; 83735; 84484; 85025; 85610; 85730; 93005; 99285; A9270

== ENCOUNTER 2024-05-19 08:20 | Emergency (ER) | payer MEDICARE ==
[2024-05-19 08:38] VITALS: BP 100/50; PULSE 72
[2024-05-19 08:58] LABS: BASOPHILS ABSOLUTE AUTO 0.03 K/uL (0.00-0.10); BASOPHILS PERCENT AUTO 0.2 % (0.1-1.3); EOSINOPHILS ABSOLUTE AUTO 0.34 K/uL (0.00-0.40); EOSINOPHILS PERCENT AUTO 2.4 % (0.0-5.4); HEMATOCRIT 40.2 % (34.3-46.0); HEMOGLOBIN 13.5 g/dL (11.2-15.5); IMMATURE GRAN ABSOLUTE AUTO 0.07 K/uL (0.00-0.23); IMMATURE GRAN PERCENT AUTO 0.5 % (0.0-0.7); LYMPHOCYTES ABSOLUTE AUTO 1.55 K/uL (0.8-3.3); LYMPHOCYTES PERCENT AUTO 10.8 % (11.4-47.7); MEAN CORPUSCULAR HEMOGLOBIN 29.9 pg (31.6-35.5); MEAN CORPUSCULAR HGB CONC 33.6 g/dL (31.6-35.5); MEAN CORPUSCULAR VOLUME 89.1 fL (81.4-99.0); MONOCYTES ABSOLUTE AUTO 1.12 K/uL (0.20-0.90); MONOCYTES PERCENT AUTO 7.8 % (3.3-12.6); NEUTROPHILS ABSOLUTE AUTO 11.27 K/uL (1.0-7.6); NEUTROPHILS PERCENT AUTO 78.3 % (40.0-78.1); PLATELET COUNT,PLT 304 K/uL (130-375); RED BLOOD CELL COUNT 4.51 M/uL (3.77-5.24); WHITE BLOOD CELL COUNT,WBC 14.4 K/uL (3.2-11.0)
[2024-05-19 09:18] LABS: A/G RATIO 0.7 (1.2-2.2); ALANINE AMINOTRANSFERASE,ALT 19 U/L (12-78); ALBUMIN 3.2 g/dL (3.4-5.0); ALKALINE PHOSPHATASE 95 U/L (46-116); ASPARTATE AMNIOTRANSFERASE,AST 21 U/L (15-37); BILIRUBIN TOTAL 0.5 mg/dL (0.2-1.0); BLOOD UREA NITROGEN,BUN 33 mg/dL (7-18); CALCIUM 9.4 mg/dL (8.5-10.1); CARBON DIOXIDE,CO2 27 mmol/L (21-32); CHLORIDE,CL 102 mmol/L (100-108); CREATININE 0.8 mg/dL (0.6-1.0); EST CRCL DRUG DOSING (CG) 36.68 mL/min; ESTIMATED GFR 71 mL/min (>60); GLUCOSE RANDOM 109 mg/dL (74-106); POTASSIUM,K 3.2 mmol/L (3.6-5.2); PROTEIN TOTAL,TP 7.6 g/dL (6.4-8.2); SODIUM,NA 138 mmol/L (140-148)
[2024-05-19 09:19] LABS: ANION GAP 12.2 mmol/L (5.0-14.0)
[2024-05-19] MEDS: Potassium Chloride 20 MEQ Tab.ER PO ONE (10:08)
[2024-05-19] MEDS: Lidocaine 1% 5 ML VIAL INJECT ONE (10:45)
[2024-05-19] MEDS: cefTRIAXone 1 GM Vial IM ONE (10:45)
== END 2024-05-19 11:05 | disposition home or self-care (01) ==
LOC: JP.ED 08:20
DX: J18.9 Pneumonia, unspecified organism (principal); I10 Essential (primary) hypertension; E03.9 Hypothyroidism, unspecified; Z91.048 Other nonmedicinal substance allergy status; Z88.2 Allergy status to sulfonamides; Z79.899 Other long term (current) drug therapy; Z79.82 Long term (current) use of aspirin
CPT/HCPCS: 36415; 71045; 80053; 83880; 85025; 87428; 96372; 99284; 99285; A9270; J0696; J2003

== ENCOUNTER 2024-05-22 11:14 | Emergency (ER) | payer MEDICARE ==
[2024-05-22] MEDS: Diphtheria,Pertussis(Acell),Tetanus Vaccine 0.5 ML Syringe IM ONE (11:36)
[2024-05-22] MEDS: Lidocaine 1% with EPINEPHrine 1:100,000 20 ML MDV INJECT ONE (11:36)
[2024-05-22 11:37] VITALS: BP 131/67; PULSE 67
[2024-05-22] MEDS: Bacitracin Oint 1 GM U/D Packet TOP ONE (12:00)
== END 2024-05-22 12:16 | disposition home or self-care (01) ==
LOC: JP.ED 11:14
DX: S51.811A Laceration without foreign body of right forearm, initial encounter (principal); Z23 Encounter for immunization; I10 Essential (primary) hypertension; E66.9 Obesity, unspecified; E03.9 Hypothyroidism, unspecified; Z68.31 Body mass index [BMI] 31.0-31.9, adult; Z91.041 Radiographic dye allergy status; Z88.2 Allergy status to sulfonamides; Z91.048 Other nonmedicinal substance allergy status; Z79.82 Long term (current) use of aspirin; Z79.890 Hormone replacement therapy; Z79.899 Other long term (current) drug therapy; Z90.49 Acquired absence of other specified parts of digestive tract; Z90.710 Acquired absence of both cervix and uterus; W26.8XXA Contact with other sharp object(s), not elsewhere classified, initial encounter
CPT/HCPCS: 12002; 90471; 90715; 99282-25; J2004

== ENCOUNTER 2024-05-28 16:49 | Emergency (ER) | payer MEDICARE ==
[2024-05-28] MEDS ORDERED: Hydrogen Peroxide 3% Top Soln 240 ML Bottle TOP PRN (17:32)
[2024-05-28] MEDS ORDERED: Bacitracin Oint 1 GM U/D Packet TOP ONE (17:34)
[2024-05-28 17:48] VITALS: BP 122/65; PULSE 62
== END 2024-05-28 18:46 | disposition home or self-care (01) ==
LOC: JP.ED 16:49
DX: Z48.00 Encounter for change or removal of nonsurgical wound dressing (principal); S51.811D Laceration without foreign body of right forearm, subsequent encounter; I10 Essential (primary) hypertension; E66.9 Obesity, unspecified; E03.9 Hypothyroidism, unspecified; Z68.31 Body mass index [BMI] 31.0-31.9, adult; Z88.2 Allergy status to sulfonamides; Z91.041 Radiographic dye allergy status; Z91.048 Other nonmedicinal substance allergy status; Z79.890 Hormone replacement therapy; Z79.899 Other long term (current) drug therapy; Z90.49 Acquired absence of other specified parts of digestive tract; Z90.710 Acquired absence of both cervix and uterus
CPT/HCPCS: 99282; A9270